=== PATIENT | male | born 1970 | race Caucasian/White ===

== ENCOUNTER 2024-06-16 01:54 | Inpatient (IN) | payer SELFPAY ==
[2024-06-16] VITALS (10 sets, daily range): BP systolic 140–157; BP diastolic 72–89; PULSE 72–102; RESP 16–20; TEMP 36.6–36.9; O2SAT 96–100; BMI 34.6
--- NOTE | 2024-06-16 | ECHO_ITS ---
Patient Info Name: Duong Tavares Age: 53 years : 1970 Gender: Male Ht: 68 in Wt: 227 lbs BSA: 2.26 m2 HR: 92 bpm BP: 151 / 76 mmHg Technical Quality: Poor Exam Date: 06/16/2024 11:34 AM Exam Location: Echo Lab Patient Status: Inpatient Admit Date: 06/16/2024 Staff Ordering Physician: Schuyler Gomez NP Attending Provider: Niranjan Ken MD Referring Physician: Jason MURRAY; Exam Type: CA echo dop color flow w con Study Info Indications - FALL EPISODES Complete two-dimensional, color flow and Doppler transthoracic echocardiogram is performed with contrast to opacify the left ventricle and to improve the deliniation of the left ventricle endocardial borders. Contrast/Agitated Saline Contrast/Ag. Saline: Definity Amount: 2.00 ml Existing IV Access: Yes Reason for Poor Study: poor echocardiographic windows Summary 1. Suboptimal image quality, echo contrast was used. Normal LV size, moderate LVH, normal LV systolic and diastolic function. No significant MR. Aortic valve not well visualized, no hemodynamically significant stenosis by Doppler. Unable to assess RVSP due to inadequate TR jet. Left Ventricle Left ventricular chamber dimension is normal. Left ventricular systolic function is normal, estimated at 65-70%. There is moderately increased left ventricular wall thickness. The left ventricular diastolic function is normal. Right Ventricle Right ventricular chamber dimension is normal. Right ventricular systolic function is normal. Left Atria Left atrial chamber dimension is normal. Right Atria Right atrial chamber dimension is normal. Aortic Valve The aortic valve is not well visualized. There is no aortic valve stenosis. Pulmonic Valve The pulmonic valve is not well visualized. Mitral Valve The mitral valve has normal leaflets. Tricuspid Valve The tricuspid valve leaflets are normal. Pericardium/Pleural The pericardium appears normal. Aorta The aortic root size at the sinus of Valsalva is normal. Left Ventricular Outflow Tract Name Value Normal LVOT 2D LVOT Diameter 2.09 cm LVOT Doppler LVOT Peak Gradient 5 mmHg LVOT Mean Gradient 3 mmHg LVOT VTI 27.00 cm LVOT VTI/AV VTI Ratio 0.81 LVOT Stroke Volume 92.89 ml LVOT CO 7.44 l/min LVOT CI 3.29 L/min/m2 Pulmonic Valve Name Value Normal RVOT Doppler RVOT Peak Gradient 3 mmHg PV Doppler PV Peak Gradient 3 mmHg Mitral Valve Name Value Normal MV Doppler MV Decel [place] 874.03 cm/s2 MV PHT 0 s MV Area (PHT) 7.55 cm2 4.00-5.00 MV Diastolic Function MV E Peak Velocity 87.83 cm/s MV A Peak Velocity 83.73 cm/s MV E/A 1.05 MV Decel Time 0 s MV Annular TDI MV E/e' (Septal) 7.56 <=8.00 MV E/e' (Lateral) 6.95 <=8.00 MV E/e' (Average) 7.26 Tricuspid Valve Name Value Normal Estimated PAP/RSVP RA Pressure 10 mmHg <=5 Aorta Name Value Normal Ascending Aorta Ao Root Diameter (MM) 3.86 cm Ao Root Diam Index (MM) 1.71 cm/m2 Aortic Valve Name Value Normal AV Doppler AV Peak Velocity 140.84 cm/s AV Peak Gradient 8 mmHg AV Mean Gradient 5 mmHg AV VTI 33.35 cm AV Area (Cont Eq VTI) 2.79 cm2 >=3.00 AV Area (Cont Eq Sunday) 2.79 cm2 AV Regurgitation 2D LVOT Area 3.44 cm2 Ventricles Name Value Normal LV Dimensions 2D/MM IVS Diastolic Thickness (2D) 1.35 cm 0.60-1.00 LVID Diastole (2D) 4.32 cm 4.20-5.80 LVIW Diastolic Thickness (2D) 1.37 cm 0.60-1.00 LVID Systole (2D) 2.73 cm 2.50-4.00 LVOT Diameter 2.09 cm LV Mass (2D Cubed) 224.34 g 88.00-224.00 LV Mass Index (2D Cubed) 0.01 g/cm2 0.00-0.01 Relative Wall Thickness (2D) 0.64 LV Fractional Shortening/Ejection Fraction 2D/MM LV Fractional Shortening (2D) 38 % 25-43 LV EF (2D Teichanishaz) 68 % 52-72 LV Diastolic Volume (4C MOD) 120.71 ml LV EF (4C MOD) 65 % LV Diastolic Volume (2C MOD) 110.49 ml LV EF (2C MOD) 70 % LV Diastolic Volume (BP MOD) 116.51 ml 62.00-150.00 LV Diastolic Volume Index (BP MOD) 0.05 l/m2 0.03-0.07 LV Systolic Volume (BP MOD) 36.93 ml 21.00-61.00 LV Systolic Volume Index (BP MOD) 0.02 l/m2 0.01-0.03 LV EF (BP MOD) 68 % 52-72 LV Diastolic Length (4C) 8.40 cm LV Systolic Length (4C) 6.88 cm LV Stroke Volume (4C MOD) 78.21 ml Atria Name Value Normal LA Dimensions LA Dimension (MM) 3.34 cm 3.00-4.10 Report Signatures
--- NOTE | ~2024-06-16 | MR_ITS ---
MR brain/brain stem wo/w con Ordering provider: Hayden Addison MD History: 53 years Male with . L arm weakness . Comparison: CT head performed 16/06/2024 Technique: MRI brain was performed with and without contrast. 20 mL of MultiHance were injected IV. FINDINGS: BONES: Normal. CRANIOCERVICAL JUNCTION: normal. PITUITARY: Normal. MAJOR INTRACRANIAL VESSELS: Normal flow void. OPTIC NERVES AND CRANIAL NERVES VII AND VIII COMPLEXES: Grossly normal. BRAIN PARENCHYMA AND CSF SPACES: Mild nonspecific T2 white matter hyperintensities are seen in a cristofer ateral periventricular and deep white matter distribution which are likely related to chronic ischemi c small vessel disease. Mild diffuse cortical atrophy. The brainstem and cerebellum are normal. No ac luisa or chronic intracranial hemorrhage. No extra axial fluid collections. Diffusion weighted and ADC mapping images reveal diffusion restriction in the posterior right frontal, right parietal area exten ding to the temporal lobe and insula suggestive of acute infarct. Small focus is also seen in the lef t parietal white matter suggestive of lacunar infarct. No midline shift or mass effect. No abnormal c ontrast enhancement. PARANASAL SINUSES: Left maxillary, right maxillary and right bilateral ethmoid sinus disease. MASTOIDS: Normal SUPERFICIAL/SURROUNDING SOFT TISSUES: Normal. IMPRESSION: 1. Acute infarct involving the right posterior frontal, parietal, superior temporal and insular area s. 2. . No abnormal enhancement. Results was notified to the physician Aparna Blanco on June 16, 2024 2 :38 PM. Reviewed, dictated and finalized at location A. FOLIO LEAD IMPRESSION: 1. Acute infarct involving the right posterior frontal, parietal, superior tem poral and insular areas. 2. . No abnormal enhancement. Results was notified to the physician Aparna Blanco on June 16, 2024 2 :38 PM.
--- NOTE | ~2024-06-16 | XR_ITS ---
Portable chest x-ray Comparison: None Clinical History: Weakness Findings: Lungs are clear, without focal consolidation or pleural effusion. Cardiomediastinal silho uette is stable. Bones and soft tissues are unremarkable. Impression: Clear lungs. Reviewed, dictated and finalized at location M. ARE DIRECTOR Impression: Clear lungs.
--- NOTE | ~2024-06-16 | CT_ITS ---
CT ANGIOGRAM NECK AND HEAD History: CVA. Technique: Axial noncontrast imaging of the brain was performed. Serial spiral axial images through t he head and neck were then obtained during arterial phase IV injection of 100 cc of Omnipaque 350. 3- D postprocessing and MIP images were then reconstructed on the remote workstation. Dose reduction mikala hnique was used on this scan by utilizing automated exposure control and iterative reconstruction mikala hnique. The dose-length product (DLP) was 2018.03 mGy-cm. CTA neck findings: Bilateral vertebral arteries are patent. Bilateral common carotid, internal carot id, and external carotid arteries are patent. There are calcified plaques the bilateral internal morgan tid artery origins, but no significant stenosis is evident. No large vessel occlusion or stenosis. Th e proximal right internal carotid artery demonstrates 0% stenosis relative to the normal distal arter y lumen diameter. The proximal left internal carotid artery demonstrates 0% stenosis relative to the normal distal artery lumen diameter. CTA head findings: Distal vertebral arteries, basilar artery, and posterior cerebral arteries are pat ent. Distal internal carotid arteries, middle cerebral arteries, and anterior cerebral arteries are p atent. No large vessel occlusion or stenosis seen. No aneurysm. Axial noncontrast imaging of the brain is unremarkable. No acute infarct, intracranial hemorrhage or mass lesion seen. [place]-white differentiation preserved. No mass effect or midline shift. Ventricles a nd subarachnoid spaces are unremarkable. Paranasal sinuses are clear, aside from retention cyst or po lyp in the left maxillary sinus. Calvarium intact. Impression: No acute findings. Reviewed, dictated and finalized at location . GY AUDITOR Impression: No acute findings.
--- NOTE | 2024-06-16 02:00 | ECG_ITS ---
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
[2024-06-16 02:07] LABS: Glucose Point of Care 430 mg/dl (65-105)
[2024-06-16 02:16] LABS: Basophils Absolute Auto 0.1 K/mm3 (0.0-0.1); Basophils Percent Auto 0.6 % (0.2-1.2); Eosinophils Absolute Auto 0.3 K/mm3 (0-0.3); Eosinophils Percent Auto 3.4 % (0-4.4); Hematocrit 29.1 % (42.0-52.0); Hemoglobin 9.5 g/dL (14.0-18.0); Immature Granulocyte Absolute 0.05 K/mm3 (0.00-0.031); Immature Granulocyte Percent A 0.6 % (0-0.5); Lymphocytes Percent Auto 23.5 % (18.3-44.2); Mean Corpuscular HGB Conc 32.6 g/dl (32-36); Mean Corpuscular Hemoglobin 26.4 pg (26-34); Mean Corpuscular Volume 80.8 fl (80-100); Mean Platelet Volume 9.3 fl (7.4-10.4); Monocytes Absolute Auto 0.7 K/mm3 (0.1-0.6); Monocytes Percent Auto 8.7 % (2.6-8.5); Neutrophils Absolute Auto 5.4 K/mm3 (1.3-6.7); Neutrophils Percent Auto 63.2 % (45.5-73.1); Platelet Count Result 250 k/mm3 (150-375); White Blood Count 8.5 K/mm3 (4.5-10.0)
[2024-06-16 02:27] LABS: Alanine Aminotransferase 10 U/L (6-50); Albumin Level 3.7 g/dL (3.5-5.1); Alkaline Phosphatase 79 U/L (38-126); Anion Gap 4 mmol/L (4-12); Aspartate Amino Transferase 17 U/L (17-59); Bilirubin,Total 0.3 mg/dL (0.2-1.3); Blood Urea Nitrogen 42 mg/dL (9-20); Calcium 8.8 mg/dL (8.4-10.2); Carbon Dioxide 30 mmol/L (22-30); Chloride 99 mmol/L (98-107); Estimated CRCL calculation 50 ml/min; Estimated Glomerular Filt Rate 39; Glucose 432 mg/dL (65-110); Prothrombin Time 13.7 Seconds (11.1-14.7); Sodium 133 mmol/L (137-145)
[2024-06-16 02:28] LABS: Partial Thromboplastin Time 33.3 Seconds (22.3-36.8)
[2024-06-16 02:29] LABS: Ethanol < 10 mg/dL (<10)
[2024-06-16 02:31] LABS: Magnesium 1.6 mg/dL (1.6-2.3)
--- NOTE | 2024-06-16 02:49 | ED.NEUROSD ---
HPI - Neuro Symptoms/Deficit General Chief Complaint: Suspected CVA Stated Complaint: Left sided weakness Time Seen by Provider: 06/16/24 02:00 History of Present Illness HPI Narrative: Patient is a 53-year-old male who presents to the emergency department this morning post a ground level fall occurred at home. Patient admits that he lives at home alone and called 911 he fall around 12:30 a.m. patient states that he feels generally weak but felt as though he was more weak on the left side which believes that this precipitated his fall. When asked regarding when the left arm weakness started, patient is unable to give me a clear time, stating sometime last night before he was getting ready to go to sleep. Patient is able to move all 4 extremities and is following all of my commands, is alert and oriented to person, place, time and situation and is able to list all of his home medications by memory. Patient states that he felt as though he could not coordinate his left arm and get it to do what he wants it to do. 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 Patient denies any additional symptoms including any chest pain, shortness of breath, nausea, vomiting, abdominal pain, headaches, dizziness, blurry vision, numbness and/or tingling. Denies any blood thinner use. Denies any history of cardiovascular disease or stroke. Patient was recently treated for osteomyelitis of his left foot as he has an on going diabetic ulcer status post multiple toe amputations this past December. Patient has a wound care nurse come to his home twice a week every Friday and Friday to help with his wounds. Patient states that he has been getting around at home but a walker or a cane as best as he can with his toe amputations. Related Data Allergies Allergy/AdvReac Type Severity Reaction Status Date / Time No Known Allergies Allergy Verified 06/16/24 02:03 Review of Systems Review of Systems: All systems are reviewed and are negative unless stated otherwise in the HPI. Exam Narrative: General: Alert, awake, afebrile, in no acute distress, poor hygiene. HEENT: PERRL, no rhinorrhea, no post nasal drip, oropharynx clear. Neck: Trachea midline, no JVD, no lymphadenopathy. Cardiovascular: Regular rate and rhythm, no murmurs, rubs or gallops, no peripheral edema. Respiratory: Clear to auscultation bilaterally, no tachypnea, no wheezing, no rhonchi, no rubs, no respiratory distress. Abdomen: Soft, nontender, nondistended, no rebound, no guarding, no peritoneal signs. Musculoskeletal: Left lower extremity diabetic foot ulcer appears to be healing, multiple bilateral lower extremity toe amputation. Skin: No rashes or petechia, no signs of infection. Psychiatric: Alert and oriented, normal behavior and judgment for situation. Neurological: Alert and oriented to person, place, and time and situation. Follows all commands. Cranial nerves 2-12 grossly intact. Intact and equal strength in the bilateral lower extremity, 5/5 motor strength in the right upper extremity, 4/5 motor strength in the left upper extremity, left arm drift, speech is clear and fluent, patient was able to stand up on his own but was unstable on his feet limiting gait assessment. NIH score 2 for left upper extremity drift. Course Vital Signs Vital signs: Vital Signs Temperature 98.5 F 06/16/24 01:55 Pulse Rate 102 H 06/16/24 01:55 Respiratory Rate 16 06/16/24 01:55 Blood Pressure 148/80 H 06/16/24 01:55 Pulse Oximetry 97 06/16/24 01:55 Oxygen Delivery Room Air 06/16/24 01:55 Temperature 97.9 F 06/16/24 06:00 Pulse Rate 92 06/16/24 06:00 Respiratory Rate 18 06/16/24 06:00 Blood Pressure 151/76 H 06/16/24 06:00 Pulse Oximetry 100 06/16/24 06:00 Oxygen Delivery Room Air 06/16/24 06:24 MDM - Neuro Symptoms/Deficit MDM Narrative Medical decision making narrative: The patient was evaluated by myself in the emergency department. History is obtained from patient who is an independent historian and physical exam was performed. External medical records were reviewed at this time. IV was established and pertinent tests were ordered. EKG was obtained which revealed sinus rhythm rate of 98 beats per minute. No ST changes, T wave inversions or evidence of acute ischemia. EKG was independently interpreted by me and is currently pending official cardiology read. Laboratory results obtained revealing hemoglobin of 9.5, creatinine 1.8, BUN 42, glucose 432, otherwise unremarkable. Urinalysis revealed 3+ glucose otherwise unremarkable. No previous blood work available for comparison. Patient was administered 1 L IV fluid bolus with normal saline. Patient was administered 10 units of IV insulin for hyperglycemia. Repeat point of care glucose noted to be 293. Imaging studies obtained included CT brain without IV contrast and CT angiogram head and neck with contrast which was independently interpreted by me revealing no acute process, which is pending final radiology interpretation. CXR was also obtained and independently interpreted by me revealing no acute process. X-ray currently pending official radiology read. Differential diagnosis considerations include ischemic stroke, hemorrhagic stroke, dehydration, acute kidney injury, infectious process such as UTI/pneumonia, electrolyte derangements. Comorbidities impacting this visit include history of hypertension and diabetes. I have evaluated and discussed social determinants of health with the patient that could potentially impact subsequent diagnosis and treatment plans. At this time, case was discussed with the on-call neurologist Dr. Thapa at 0411 and he agreed to evaluate the patient. MRI brain was ordered at this time. Case was discussed with the on-call hospitalist Dr. Ken at 0430 and she accepted admission. On repeat assessment of the patient, reevaluation revealed that the patient is doing well and is in no acute distress. Patient symptoms have remained stable since he arrived to our emergency department. Repeat vital signs were all reviewed and noted to be stable. Differential diagnosis and treatment plan were discussed with the patient at bedside. Patient agrees with discussion and after shared medical decision making agrees with admission. All questions were answered to the patient's satisfaction. Patient was admitted hand stable ballesteros. Lab Data 06/16/24 02:10 06/16/24 02:10 Labs: Lab Results 06/16/24 06/16/24 06/16/24 Range/Units 02:04 02:10 02:41 WBC 8.5 (4.5-10.0) K/mm3 RBC 3.60 L (4.6-6.20) M/mm3 Hgb 9.5 L (14.0-18.0) g/dL Hct 29.1 L (42.0-52.0) % MCV 80.8 (80-100) fl MCH 26.4 (26-34) pg MCHC 32.6 (32-36) g/dl RDW 14.0 (11.5-14.5) % Plt Count 250 (150-375) k/mm3 MPV 9.3 (7.4-10.4) fl Immature Gran % (Auto) 0.6 H (0-0.5) % Neut % (Auto) 63.2 (45.5-73.1) % Lymph % (Auto) 23.5 (18.3-44.2) % [place] % (Auto) 8.7 H (2.6-8.5) % Eos % (Auto) 3.4 (0-4.4) % Baso % (Auto) 0.6 (0.2-1.2) % Lymph # (Auto) 2.00 (0.9-3.2) K/mm3 [place] # (Auto) 0.7 H (0.1-0.6) K/mm3 Eos # (Auto) 0.3 (0-0.3) K/mm3 Baso # (Auto) 0.1 (0.0-0.1) K/mm3 Abs Immat Gran (auto) 0.05 H (0.00-0.031) K/mm3 Absolute Neuts (auto) 5.4 (1.3-6.7) K/mm3 Absolute Nucleated RBC 0.000 (0.0-0.012) K/mm3 Nucleated RBC % 0.0 (0.0-0.2) % PT 13.7 (11.1-14.7) Seconds INR 1.0 APTT 33.3 (22.3-36.8) Seconds Sodium 133 L (137-145) mmol/L Potassium 5.0 (3.4-5.0) mmol/L Chloride 99 (98-107) mmol/L Carbon Dioxide 30 (22-30) mmol/L Anion Gap 4 (4-12) mmol/L BUN 42 H (9-20) mg/dL Creatinine 1.80 H (0.7-1.3) mg/dL Estim Creat Clear Calc 50 ml/min Estimated GFR 39 L (59 - ) Glucose 432 H (65-110) mg/dL POC Capillary Glucose 430 H (65-105) mg/dl Calcium 8.8 (8.4-10.2) mg/dL Magnesium 1.6 (1.6-2.3) mg/dL Total Bilirubin 0.3 (0.2-1.3) mg/dL AST 17 (17-59) U/L ALT 10 (6-50) U/L Alkaline Phosphatase 79 (38-126) U/L Total Protein 8.0 (6.3-8.2) g/dL Albumin 3.7 (3.5-5.1) g/dL Urine Color Yellow (Yellow) Urine Appearance Clear (Clear) Urine pH 5.5 (5.0-9.0) Ur Specific Adger 1.020 (1.001-1.035) Urine Protein 1+ H (Negative) mg/dL Urine Glucose (UA) 3+ H (Negative) mg/dL Urine Ketones Negative (Negative) mg/dL Ur Blood (Man) Negative (Negative) Urine Nitrate Negative (Negative) Urine Bilirubin Negative (Negative) Urine Urobilinogen 0.2 (<2.0) mg/dL Leukocyte Esterase Rfl Negative (Negative) HARRISON/UL Urine RBC 0-2 (0-2) /hpf Urine WBC 0-5 (0-3) /hpf Ur Squamous Epith Cells None seen (Few) /hpf Urine Bacteria None seen /hpf Urine Casts 0-2 Urine Opiates Screen Negative (Negative) Urine Methadone Screen Negative (Negative) Ur Barbiturates Screen Negative (Negative) Ur Phencyclidine Scrn Negative (Negative) Ur Amphetamine Screen Negative (Negative) U Benzodiazepines Scrn Negative (Negative) Urine Cocaine Screen Negative (Negative) U Cannabinoids Screen Negative (Negative) Ethyl Alcohol < 10 (<10) mg/dL Discharge Plan Discharge Clinical Impression: Left arm weakness, Acute kidney injury, Hyperglycemia, Diabetic foot ulcer Patient Disposition: Still a Patient Condition: Stable Time of Disposition: 04:38
[2024-06-16 02:53] LABS: Add Urine Microscopic? YES; Appearance Urine Clear (Clear); Bacteria Urine None Seen /hpf; Bilirubin Urine Negative (Negative); Blood Urine Negative (Negative); Color Urine Yellow (Yellow); Glucose Urine UA 3+ mg/dL (Negative); Ketones Urine Negative (Negative); Leukocyte Esterase Ur Negative LEU/UL (Negative); Nitrate Urine Negative (Negative); Non Pathogenic Casts 0-2; Protein Urine 1+ mg/dL (Negative); RBC Urine 0-2 /hpf (0-2); Squamous Epithelial Cell Urine None Seen /hpf (Few); Urobilinogen Urine 0.2 mg/dL (<2.0); WBC Urine 0-5 /hpf (0-3); pH Urine 5.5 (5.0-9.0)
[2024-06-16] MEDS: SODIUM CHLORIDE 0.9% IV 1,000 ML 999 ML IV CONT (03:01)
[2024-06-16 03:06] LABS: Amphetamine Screen Urine Negative (Negative); Barbiturate Screen Urine Negative (Negative); Benzodiazepines Screen Urine Negative (Negative); Cannabinoid Screen Urine Negative (Negative); Cocaine Screen Urine Negative (Negative); Methadone Screen Urine Negative (Negative); Opiate Screen Urine Negative (Negative); Phencyclidine Screen Urine Negative (Negative)
--- NOTE | 2024-06-16 03:09 | PC.NURSE ---
Pt denies pain, pt only c/o feeling weak. He states he fell at home because my body just gave out I was weak . Pt is A&O x 4
--- NOTE | 2024-06-16 03:47 | PC.NURSE ---
Pt asked multiple times to keep his arm out from under himself while sleeping so NS bolus can be administered, Pt repeatedly moving around in bed resulting in tele monitors, BP cuff and pulse ox to come off.
--- NOTE | 2024-06-16 04:03 | PC.NURSE ---
New dressing applied to pts left foot by Dr. Addison. No drainage or redness noted on wound. Dr. Addison asked pt to stand up and take a few steps. Pt sat up on edge of bed with assistance. Pt able to stand up on his own but pt was not able to take any steps and immediately sat back down. Pt was able to scoot himself up in bed.
--- NOTE | 2024-06-16 04:50 | PC.NURSE ---
Report given to Bienvenido, he asked if anything could be done for pts BG of 432. Dr. Addison notifed and she states she will put in a medication order
--- NOTE | 2024-06-16 04:50 | PC.NURSE ---
Patient unable to provide a list of medications; Patient states he takes insulins, something for blood pressure and cholesterol, zoloft, and a multivitamin , but was unable to provide names and/or dosage. RN was unable to recall an external medication list. Dr. Ken was notified.
[2024-06-16] MEDS: INSULIN HUMAN REGULAR (*BKC) 100 UNITS/ML 10 UNITS IV PUSH (05:05)
[2024-06-16 05:22] LABS: Glucose Point of Care 293 mg/dl (65-105)
[2024-06-16 06:34] LABS: Glucose Point of Care 233 mg/dl (65-105)
[2024-06-16 08:38] LABS: Glucose Point of Care 231 mg/dl (65-105)
--- NOTE | 2024-06-16 09:41 | PM.IMHP ---
H&P: HPI History of Present Illness Date/Time: 06/16/24 09:41 Chief Complaint: Left Arm Weakness Narrative: Patient was brought in to the ER with an acute onset of Left arm weakness. Patient reports that he was trying to sleep on his recliner but suddenly he felt like he couldn't feel his left arm or move it. He tried moving it with his right arm but he was having difficulty. Pt then tried walking to the bathroom and fell, and had difficulties getting himself up due to left arm and left leg weakness. He then attempted to ambulate to his bedroom but he fell again and had difficulties getting up again, so he called EMS. He denied hitting his head or LOC, states might have had some slight dizziness but unsure. Denies previous Hx of stroke, and denies blood thinners use. Patient has a walker but admits to not using it for the most part. He was treated for osteomyelitis of his left foot and has an ongoing diabetic ulcer status post left small toe amputation this past January. Patient has a wound care nurse come to his home twice a week every Friday and Friday to help with his wounds. Review of Systems Review of Systems: All systems reviewed & are unremarkable except as noted in HPI and below PMFSH Social History Social History Smoking packs per day: 0.5 Smoking cigarettes per day: 10.0 Smoking status: Current every day smoker Do You Feel Safe in your Home?: Yes Lack of Transportation: No Lack of Food: Never True Current Housing: I Have Housing Concerned About Future Housing: No Difficulty Paying Gas/Electric Bills: No Difficulty Paying for Meds: No Currently Unemployed: No Education: High School Diploma/GED Difficulty w/ Childcare or Family Care: No Spiritual care concerns: No Meds Home Medications and Allergies Allergies Allergy/AdvReac Type Severity Reaction Status Date / Time No Known Allergies Allergy Verified 06/16/24 02:03 Vital Signs Vital Signs - 24 hr 06/16/24 01:55 06/16/24 02:06 06/16/24 03:42 Temperature 98.5 F Pulse Rate 102 H 98 94 Respiratory Rate 16 16 18 Blood Pressure 148/80 H 148/80 H 143/84 H Pulse Oximetry 97 96 Oxygen Delivery Room Air 06/16/24 05:22 06/16/24 06:24 06/16/24 06:00 Temperature 97.9 F Pulse Rate 87 92 Respiratory Rate 20 18 Blood Pressure 140/89 151/76 H Pulse Oximetry 98 100 Oxygen Delivery Room Air Exam Narrative: General: Fair appearing, slight generalized muscle weakness. HEENT: Atraumatic, PERRL, EOM, anicteric, moist mucosa. Neck: Supple. Lungs: Clear bilaterally. Heart: RRR, no murmurs. Abdomen: Soft, non-tender, obese, +ve bowel sounds X4 quadrants. Musculoskeletal: Left arm with some mild weakness, left leg mod weakness. Extremities: Acyanotic, no edema, +ve pedal pulses. Skin: Warm and dry. Left lateral distal foot with diabetic ulcer, pink and moist with some slough and slight yellowish drainage. Neuro: Well oriented, slight left-arm weakness, left arm drift on arm raise test, good cristofer. 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 Psych: Calm and co-operative. H&P: Results Labs Labs: Short CBC 06/16/24 Range/Units 02:10 WBC 8.5 (4.5-10.0) K/mm3 Hgb 9.5 L (14.0-18.0) g/dL Hct 29.1 L (42.0-52.0) % Plt Count 250 (150-375) k/mm3 BMP 06/16/24 02:10 Sodium 133 L Potassium 5.0 Chloride 99 Carbon Dioxide 30 BUN 42 H Creatinine 1.80 H Glucose 432 H Calcium 8.8 Liver Function 06/16/24 Range/Units 02:10 Total Bilirubin 0.3 (0.2-1.3) mg/dL AST 17 (17-59) U/L ALT 10 (6-50) U/L Alkaline Phosphatase 79 (38-126) U/L Albumin 3.7 (3.5-5.1) g/dL Urine 06/16/24 Range/Units 02:41 Urine Color Yellow (Yellow) Urine Appearance Clear (Clear) Urine pH 5.5 (5.0-9.0) Ur Specific [place] 1.020 (1.001-1.035) Urine Protein 1+ H (Negative) mg/dL Urine Glucose (UA) 3+ H (Negative) mg/dL Assessment and Plan Assessment and plan (1) Left arm weakness: Code(s): R29.898 - Other symptoms and signs involving the musculoskeletal system Status: Acute Assessment and Plan: - Unclear etiology. - Possibly acute CVA vs TIA vs musculoskeletal vs other. - Labs fairly unremarkable. - CXR negative. - UA negative. - CTA head/Neck negative for acute. - SR on EKG. - Telemetry ordered. - MRI Brain pending. - Neurologist consulted. - Currently on acute CVA protocol. - TTE, A1C, Lipid Panel pending. - PT/OT eval and treatment. - Fall precautions. (2) Recurrent falls: Code(s): R29.6 - Repeated falls Status: Acute Assessment and Plan: - Unclear etiology. - Possibly acute CVA vs TIA vs musculoskeletal vs other. - CTA head/neck negative. - UA negative. - CXR negative. - MRI brain pending. - Neurologist consulted. - PT/OT eval and treatment. - Fall precautions. - Other mgt per # 1. (3) Acute kidney injury: Code(s): N17.9 - Acute kidney failure, unspecified Status: Acute Assessment and Plan: - Unclear etiology and unsure pt's baseline kidney function with no previous labs. - Reports good oral food and fluids intake at home. - Possibly dehydration vs/+ diabetic + hypertensive nephropathy. - Given fluid bolus in ER. - 1L IVF ordered. - Monitor renal panel closely. - Avoid nephrotoxins. - Meds dosing per renal function. (4) Hyperglycemia: Code(s): R73.9 - Hyperglycemia, unspecified Status: Acute Assessment and Plan: - Blood glucose monitoring AC & HS. - Started on Lantus and SSI. - A1C pending. - Diabetic diet. - Adjust insulin as needed. - Hypoglycemic protocol. (5) Diabetic foot ulcer: Code(s): E11.621 - Type 2 diabetes mellitus with foot ulcer; L97.509 - Non-pressure chronic ulcer of other part of unspecified foot with unspecified severity Status: Acute Assessment and Plan: - Chronic. - Appears clean and non-infected. - Wound nurse consult. - Wound mgt per nursing staff. (6) HTN (hypertension): Code(s): I10 - Essential (primary) hypertension Status: Acute Assessment and Plan: - Fairly well controlled. - Hold lisinopril for now with BECCA. - Adjust meds as needed. Plan Neurologist consulted for Left-arm weakness, MRI brain pending, adjust insulin for better blood-glucose control. Quality VTE Prophylaxis VTE prophylaxis: mechanical ordered Stroke Date of last known normal: 06/15/24 Time of last known normal: 17:00 Hospitalist [facility] Advance Care Plan I have confirmed that the patient's Advanced Care Plan is present, code status is documented, or surrogate decision maker is listed in patient medical record.: Yes Medication Reconciliation I have utilized all available resources to obtain, update and review the patients current medications (includes all prescriptions, OTC, herbals, cannabis, and nutritional supplements).: Yes
[2024-06-16 10:29] LABS: Cholesterol 128 mg/dL (0-200); HDL Direct 26 mg/dL; Triglycerides 273 mg/dL (<150)
[2024-06-16] MEDS: SODIUM CHLORIDE 0.9% IV 1,000 ML 75 ML IV CONT (10:33)
[2024-06-16 10:40] LABS: LDL Cholesterol Direct 46 mg/dL
[2024-06-16 10:42] LABS: Hemoglobin A1C 10.4 % (<5.7)
[2024-06-16 11:56] LABS: Glucose Point of Care 228 mg/dl (65-105)
[2024-06-16] MEDS: INSULIN ASPART (*BKC) 100 UNITS/ML SUB-Q ×3 (12:33→20:58)
--- NOTE | 2024-06-16 12:40 | P.CONNEU_ITS ---
Assessment and Plan Assessment and plan (1) Recurrent falls: Code(s): R29.6 - Repeated falls Status: Acute (2) Left arm weakness: Code(s): R29.898 - Other symptoms and signs involving the musculoskeletal system Status: Acute (3) Diabetic foot ulcer: Code(s): E11.621 - Type 2 diabetes mellitus with foot ulcer; L97.509 - Non-pressure chr onic ulcer of other part of unspecified foot with unspecified severity Status: Acute (4) TIA (transient ischemic attack): Code(s): G45.9 - Transient cerebral ischemic attack, unspecified Status: Acute Plan 1. Diabetes mellitus 2. Complaints of left upper extremity weakness raising the possibility of TIA versus compressive neuropathy versus brachial plexopathy because of the positional compression. As the initial CT scan is negative MRI will be obtained for further delineation in the meantime MRI an echocardiogram will be obtained head and neck CT has already been done which is normal. He will also benefit from the EMG and nerve conduction study as an outpatient. At present he can be continued on aspirin and Plavix for the next 6 week will require the follow-up with the physician. He definitely need ongoing counseling for his ongoing diabetic treatment, Which could be contributing to diabetic neuropathy and autonomic neuropathy. Consult date: 06/16/24 Reason for consult: Fall raising the possibility of stroke. HPI: Duong Tavares is a 53 year old male admitted to the hospital through the emergency room where he presented subsequent to our ground level fall at home patient lives at home alone and he call 911 around 12:30 a.m. and reported that he generally feels weak but thought he was more weak than usual on the left side which resulted in the fall. He was unable to describe to the physician in the ER with a he had the left upper extremity weakness or not at the time of initial evaluation in the emergency room he was able to move all 4 extremities and was able to follow all the verbal commands appropriately and also he was awake alert oriented x3 with ability to list all his medications as well. But he did mention that he was having difficulties in coordinating his left arm patient was eventually able to varying exceptionalities teacher fingers of the examination in the ER and squeeze the hands as well he gave no history of any other changes associated symptomatology such as headache blurred vision weakness or numbness of 1 side or other side patient had recently been treated for osteomyelitis of left foot and also he has ongoing diagnosis of diabetic ulcer and has undergone multiple toe amputation in the month of December. He does have a wound care nurse comes to his house twice a week and he has been getting around in the house using a walker. He is not allergic to any medications his initial examination revealed him to have normal vital signs with pulse of 102 the pressure 148/80 and 4/5 strength in the left upper extremity with left upper extremity drift but no involvement of the speech or vision. evaluation in the ER revealed him to have no leukocytosis with hemoglobin of 9.5, normal chest x-ray and normal CTA with no involvement of the large vessels, patient has not been able to provide his list of medications. Review of Systems Review of Systems: All systems reviewed & are unremarkable except as noted in HPI and below PMFSH Social History Social History Smoking packs per day: 0.5 Smoking cigarettes per day: 10.0 Smoking status: Current every day smoker Do You Feel Safe in your Home?: Yes Lack of Transportation: No Lack of Food: Never True Current Housing: I Have Housing Concerned About Future Housing: No Difficulty Paying Gas/Electric Bills: No Difficulty Paying for Meds: No Currently Unemployed: No Education: High School Diploma/GED Difficulty w/ Childcare or Family Care: No Spiritual care concerns: No Meds Home Medications and Allergies Home Medications Medication Instructions Recorded Confirmed Type Unable to Obtain Home Medications 06/16/24 06/16/24 History Allergies Allergy/AdvReac Type Severity Reaction Status Date / Time No Known Allergies Allergy Verified 06/16/24 02:03 Vital Signs Vital Signs - 24 hr 06/16/24 01:55 06/16/24 02:06 06/16/24 03:42 Temperature 36.9 C Pulse Rate 102 H 98 94 Respiratory Rate 16 16 18 Blood Pressure 148/80 H 148/80 H 143/84 H Pulse Oximetry 97 96 Oxygen Delivery Room Air 06/16/24 05:22 06/16/24 06:24 06/16/24 06:00 Temperature 36.6 C Pulse Rate 87 92 Respiratory Rate 20 18 Blood Pressure 140/89 151/76 H Pulse Oximetry 98 100 Oxygen Delivery Room Air 06/16/24 08:15 06/16/24 12:00 Temperature Pulse Rate 84 Respiratory Rate Blood Pressure Pulse Oximetry Oxygen Delivery Room Air Exam Narrative: Revealed him to be awake alert cooperative in no obvious acute distress, his speech not dysphasic not dysarthric not dysphonic, head normocephalic with no cranial bruits, ear nose throat examination normal, neck supple with no meningeal signs no thyromegaly no lymphadenopathy, heart regular with no murmur, lungs clear with no evidence of rhonchi or crepitations, abdomen is soft nontender but protuberant with normal bowel sounds, upper extremities without any 0 ulcers lower extremities with no edema neurologically he was awake alert cooperative in no obvious acute distress, his speech was not dysphasic not dysa rthric not dysphonic, pupils are round regular feels the vision were full to threat stimuli, extraocular movements are full with no spontaneous nystagmus, facial sensation was intact face was symmetrical, tongue was midline uvula was midline, motor examination revealed him to be generally with decreased strength with no focal motor deficit, reflexes were extremely sluggish, plantar responses were downgoing, he had decreased sensation in both lower extremities, There was no evidence of gross cerebellar deficit on [id number]-finger though he had difficulties in performing so. Results Labs 06/16/24 02:10 06/16/24 02:10 Labs: Short CBC 06/16/24 Range/Units 02:10 WBC 8.5 (4.5-10.0) K/mm3 Hgb 9.5 L (14.0-18.0) g/dL Hct 29.1 L (42.0-52.0) % Plt Count 250 (150-375) k/mm3 BMP 06/16/24 02:10 Sodium 133 L Potassium 5.0 Chloride 99 Carbon Dioxide 30 BUN 42 H Creatinine 1.80 H Glucose 432 H Calcium 8.8 Liver Function 06/16/24 Range/Units 02:10 Total Bilirubin 0.3 (0.2-1.3) mg/dL AST 17 (17-59) U/L ALT 10 (6-50) U/L Alkaline Phosphatase 79 (38-126) U/L Albumin 3.7 (3.5-5.1) g/dL Urine 06/16/24 Range/Units 02:41 Urine Color Yellow (Yellow) Urine Appearance Clear (Clear) Urine pH 5.5 (5.0-9.0) Ur Specific [place] 1.020 (1.001-1.035) Urine Protein 1+ H (Negative) mg/dL Urine Glucose (UA) 3+ H (Negative) mg/dL
[2024-06-16] MEDS: PERFLUTREN LIPID MICROSPHERES 1.5 ML VIAL DILUTED TO 10 ML TOTAL VOLUME IV PUSH (13:00)
--- NOTE | 2024-06-16 13:26 | IVDEFINITY ---
Prior to administration of IV Definity the patient was educated on the risks and benefits of the imaging enhancing agent including potential adverse side effects. The patient verbalized understanding. Allergies were verified. No exclusion criteria were identified and at least one of the following inclusion criteria were met: 1) physician request, 2) patient technically difficult to image (per the [place] [employer]ch[employer] guidelines of two or more segments not discernable within the apical view), or 3) questionable left ventricular function. ?
[2024-06-16 16:52] LABS: Glucose Point of Care 278 mg/dl (65-105)
[2024-06-16 20:49] LABS: Glucose Point of Care 256 mg/dl (65-105)
[2024-06-16] MEDS: INSULIN GLARGINE (*BKC) 100 UNITS/ML 20 UNITS SUB-Q (20:59)
[2024-06-17] VITALS (10 sets, daily range): BP systolic 144–169; BP diastolic 76–84; PULSE 73–89; RESP 16–20; TEMP 36.6–36.7; O2SAT 96–100
[2024-06-17 08:30] LABS: Glucose Point of Care 154 mg/dl (65-105)
[2024-06-17] MEDS: SODIUM CHLORIDE 0.9% IV 1,000 ML 75 ML IV CONT (08:50)
--- NOTE | 2024-06-17 10:53 | PM.IMPN ---
Progress Note: A&P Assessment and Plan (1) Acute CVA (cerebrovascular accident): Code(s): I63.9 - Cerebral infarction, unspecified Status: Acute Assessment and Plan: - Brain MRI 06/16/24 14:17 IMPRESSION: 1. Acute infarct involving the right posterior frontal, parietal, superior temporal and insular areas. 2. No abnormal enhancement. - Neurologist aware of acute CVA. - Outside window for IV thrombolysis on his presentation and treatment not administered. - Patient on acute CVA protocol. - ST/PT/OT eval and treatment. - TTE ordered. - A1C, Lipid panel ordered. - Maintains SR on telemetry and we'll continue monitoring. (2) Left arm weakness: Code(s): R29.898 - Other symptoms and signs involving the musculoskeletal system Status: Acute Assessment and Plan: - Likely related to above vs less likely musculoskeletal, compressive neuropathy versus brachial plexopathy due to positional compression. - MRI +ve for acute infarct as noted above. - Labs fairly unremarkable. - CXR negative. - UA negative. - CTA head/Neck negative for acute. - SR on EKG. - Neurologist following. - Continue to implement acute CVA protocol. - TTE, A1C, pending. - Lipid Panel reviewed and LDL noted, 46. - PT/OT eval and treatment. - Fall precautions. (3) Recurrent falls: Code(s): R29.6 - Repeated falls Status: Acute Assessment and Plan: - Unclear etiology. - Possibly related to patient's acute CVA vs musculoskeletal vs other. - CTA head/neck negative. - UA negative. - CXR negative. - MRI brain showing acute CVA. - Neurologist following. - Continue PT/OT eval and treatment. - Fall precautions. - Other mgt per # 1. (4) Acute kidney injury: Code(s): N17.9 - Acute kidney failure, unspecified Status: Acute Assessment and Plan: - Unclear etiology and unsure pt's baseline kidney function with no previous labs. - Reports good oral food and fluids intake at home. - Possibly dehydration vs/+ diabetic + hypertensive nephropathy. - Given fluid bolus in ER. - 1L IVF given overnight. - Monitor renal panel closely. - Avoid nephrotoxins. - Meds dosing per renal function. (5) Hyperglycemia: Code(s): R73.9 - Hyperglycemia, unspecified Status: Acute Assessment and Plan: - Hx of DM 2. - Blood glucose monitoring AC & HS. - Started on Lantus and SSI. - A1C pending. - Diabetic diet. - Adjust insulin as needed. - Hypoglycemic protocol with insulin use. (6) Diabetic foot ulcer: Code(s): E11.621 - Type 2 diabetes mellitus with foot ulcer; L97.509 - Non-pressure chronic ulcer of other part of unspecified foot with unspecified severity Status: Acute Assessment and Plan: - Chronic. - Appears clean and non-infected. - Wound nurse consult. - Wound mgt per nursing staff. (7) HTN (hypertension): Code(s): I10 - Essential (primary) hypertension Status: Acute Assessment and Plan: - Fairly well controlled. - Hold lisinopril for now with BECCA and permissive hypertension post acute CVA. - Adjust meds as needed when stable. Plan Neurologist consulted for Left-arm weakness, MRI brain pending, adjust insulin for better blood-glucose control. Time Spent With Patient Time with patient: 25 - 35 minutes Subjective Date/time seen: 06/17/24 08:53 Patient states he feels alright but still has weakness to his left arm and can barely lift his left arm. Also has slight left leg weakness. Denies headache, dizziness or other acute distress and states enjoyed his breakfast. Interval history: Patient calm on bedrest and looks to be in no acute distress. Review of Systems Review of Systems: All systems reviewed & are unremarkable except as noted in HPI and below Exam Narrative: General: Fair appearing, no acute distress on recliner. Left arm rested on arm-rest. HEENT: Atraumatic, PERRL, EOM, anicteric, moist mucosa. Neck: Supple. Lungs: Clear bilaterally. Heart: RRR, no murmurs. Abdomen: Soft, non-tender, obese, +ve bowel sounds X4 quadrants. Musculoskeletal: Left arm with mild-mod weakness, left leg mild weakness. Extremities: Acyanotic, no edema, +2 pedal and radial pulses. Skin: Warm and dry. Left lateral distal foot with diabetic ulcer, pink and moist with some slough and slight yellowish drainage. Neuro: Well oriented, slight left-arm weakness, left arm drift on arm raise test, good cristofer. 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 no other focal neuro deficits noted. Psych: Calm and co-operative. Objective Data Vital Signs Vital Signs: Vital Signs - 24 hr 06/16/24 12:00 06/16/24 14:00 06/16/24 16:00 Temperature 98.1 F Pulse Rate 84 78 72 Respiratory Rate 16 Blood Pressure 149/74 H Pulse Oximetry 99 Oxygen Delivery 06/16/24 20:00 06/16/24 20:00 06/16/24 22:00 Temperature 98.1 F Pulse Rate 77 74 Respiratory Rate 18 Blood Pressure 157/72 H Pulse Oximetry 99 Oxygen Delivery Room Air 06/17/24 00:00 06/17/24 04:00 06/17/24 06:00 Temperature 97.8 F Pulse Rate 76 73 78 Respiratory Rate 18 Blood Pressure 144/76 H Pulse Oximetry 96 Oxygen Delivery 06/17/24 09:09 06/17/24 08:50 06/17/24 08:50 Temperature Pulse Rate 89 Respiratory Rate Blood Pressure Pulse Oximetry 98 Oxygen Delivery Room Air Room Air Intake/Output Intake/Output: Intake & Output 06/14/24 06/15/24 06/16/24 06/17/24 23:59 23:59 23:59 23:59 Intake Total 2874 236 Output Total 1825 1277 Balance 1049 -1041 Meds/Results Medications: Active Medications Generic Name Dose Route Start Last Admin Trade Name Freq PRN Reason Stop Dose Admin Dextrose 12.5 gm 06/16/24 10:06 Dextrose 50% 25 Gm/50 Ml Syringe IV PUSH PRN PRN Hypoglycemia Protocol Glucagon 1 mg 06/16/24 10:06 Glucagon For Inj 1 Mg Vial IM PRN PRN Hypoglycemia Protocol Glucose 15 gm 06/16/24 10:06 Glucose Oral Gel 15 Gm Of Glucse In 37.5 Gm Tube PO PRN PRN Hypoglycemia Protocol Dextrose 1,000 mls @ 100 mls/hr 06/16/24 10:06 Dextrose 5% 1,000 Ml IVPB PRN PRN Hypoglycemia Protocol Sodium Chloride 1,000 mls @ 75 mls/hr 06/16/24 10:20 06/17/24 08:50 Normal Saline Iv IV CONT 75 mls/hr .[id number] VLADIMIR Administration Insulin Aspart 3 - 6 units 06/16/24 12:00 06/17/24 08:47 Insulin Aspart (*Bkc) 100 Units/Ml SUB-Q Not Given [facility] Protocol Insulin Aspart 1 - 3 units 06/16/24 21:00 06/16/24 20:58 Insulin Aspart (*Bkc) 100 Units/Ml SUB-Q 2 units HS VLADIMIR Administration Protocol Insulin Glargine 20 units 06/16/24 21:00 06/16/24 20:59 Insulin Glargine (*Bkc) 100 Units/Ml SUB-Q 20 units HS VLADIMIR Administration Radiology Results: ITS Impressions Head/Neck CTA 06/16/24 05:51 Impression: No acute findings. Chest X-Ray 06/16/24 05:54 Impression: Clear lungs. Brain MRI 06/16/24 14:17 IMPRESSION: 1. Acute infarct involving the right posterior frontal, parietal, superior temporal and insular areas. 2. . No abnormal enhancement. Results was notified to the physician Aparna Blanco on June 16, 2024 2 :38 PM. Labs Labs: Laboratory Results - last 24 hr 06/16/24 06/16/24 06/16/24 11:54 16:50 20:37 POC Capillary Glucose 228 H 278 H 256 H 06/17/24 08:27 POC Capillary Glucose 154 H Quality VTE Prophylaxis VTE prophylaxis: mechanical ordered Hospitalist MIPS Advance Care Plan I have confirmed that the patient's Advanced Care Plan is present, code status is documented, or surrogate decision maker is listed in patient medical record.: Yes Medication Reconciliation I have utilized all available resources to obtain, update and review the patients current medications (includes all prescriptions, OTC, herbals, cannabis, and nutritional supplements).: Yes
[2024-06-17] MEDS: CLOPIDOGREL BISULFATE 75 MG TABLET PO (11:25)
[2024-06-17] MEDS: ASPIRIN 81 MG ENTERIC TABLET PO (11:25)
[2024-06-17 11:55] LABS: Glucose Point of Care 295 mg/dl (65-105)
--- NOTE | 2024-06-17 12:01 | P.PNNEUR_ITS ---
Progress Note: A&P Assessment and Plan (1) Acute CVA (cerebrovascular accident): Code(s): I63.9 - Cerebral infarction, unspecified Status: Acute (2) Diabetic foot ulcer: Code(s): E11.621 - Type 2 diabetes mellitus with foot ulcer; L97.509 - Non-pressure chronic ulcer of other part of unspecified foot with unspecified severity Status: Acute (3) Diabetes mellitus: Code(s): E11.9 - Type 2 diabetes mellitus without complications Status: Acute Time Spent With Patient Time: Patient has multiple risk factors such as smoking and diabetes mellitus. CT angiogram of the head and neck did not show any significant abnormalities. MRI of the brain shows acute infarct in the right frontal parietal and superior temporal and insular area. I reviewed the films. Area of infarct is significantly more obvious on the diffusion scanning compared to the her flare view. I shall go ahead and start him on aspirin 81 mg a day and Plavix 75 mg a day and Lipitor 80 mg a day. A in addition he should be urged to stop smoking and try to control the risk factors such as diabetes mellitus and hypertension. at some 0.1 should look into the possibility of underlying his obstructive sleep apnea syndrome and weight issues also. Subjective Date/time seen: 06/17/24 12:01 Interval history: Patient is 53-year-old with history of diabetes mellitus presented to the hospital with weakness in the left upper limb pain he also history of osteomyelitis the left foot and diabetic polyneuropathy. He continues to have weakness in the left side of the body particular in the left upper limb. The MRI of the brain shows acute infarct in the right cerebral hemisphere. The findings include discussed below. No additional new symptoms. Review of Systems Review of Systems: All systems reviewed & are unremarkable except as noted in HPI and below Exam Narrative: Fully conscious alert and oriented to self time place and person. No aphasia or dysarthria. Mild flattening of the left nasolabial fold. No tongue deviation. Other cranial nerves within normal limits. Motor system significant weakness of the left upper limb and partial weakness the left lower limb. Normal strength in right upper and lower limb. Sensory action unremarkable. No involuntary movements are seen. Objective Data Vital Signs Vital Signs: Vital Signs - 24 hr 06/16/24 14:00 06/16/24 16:00 06/16/24 20:00 Temperature 98.1 F Pulse Rate 78 72 Respiratory Rate 16 Blood Pressure 149/74 H Pulse Oximetry 99 Oxygen Delivery Room Air 06/16/24 20:00 06/16/24 22:00 06/17/24 00:00 Temperature 98.1 F Pulse Rate 77 74 76 Respiratory Rate 18 Blood Pressure 157/72 H Pulse Oximetry 99 Oxygen Delivery 06/17/24 04:00 06/17/24 06:00 06/17/24 09:09 Temperature 97.8 F Pulse Rate 73 78 Respiratory Rate 18 Blood Pressure 144/76 H Pulse Oximetry 96 98 Oxygen Delivery Room Air 06/17/24 08:50 06/17/24 08:50 06/17/24 11:14 Temperature Pulse Rate 89 Respiratory Rate Blood Pressure Pulse Oximetry Oxygen Delivery Room Air Room Air Intake/Output Intake/Output: Intake & Output 06/14/24 06/15/24 06/16/24 06/17/24 23:59 23:59 23:59 23:59 Intake Total 2874 236 Output Total 1825 1277 Balance 1049 -1041 Meds/Results Medications: Active Medications Generic Name Dose Route Start Last Admin Trade Name Freq PRN Reason Stop Dose Admin Aspirin 81 mg 06/17/24 11:05 06/17/24 11:25 Aspirin 81 Mg Enteric Tablet PO 81 mg QAM VLADIMIR Administration Clopidogrel Bisulfate 75 mg 06/17/24 11:05 06/17/24 11:25 Clopidogrel Bisulfate 75 Mg Tablet PO 75 mg QAM VLADIMIR Administration Dextrose 12.5 gm 06/16/24 10:06 Dextrose 50% 25 Gm/50 Ml Syringe IV PUSH PRN PRN Hypoglycemia Protocol Glucagon 1 mg 06/16/24 10:06 Glucagon For Inj 1 Mg Vial IM PRN PRN Hypoglycemia Protocol Glucose 15 gm 06/16/24 10:06 Glucose Oral Gel 15 Gm Of Glucse In 37.5 Gm Tube PO PRN PRN Hypoglycemia Protocol Dextrose 1,000 mls @ 100 mls/hr 06/16/24 10:06 Dextrose 5% 1,000 Ml IVPB PRN PRN Hypoglycemia Protocol Sodium Chloride 1,000 mls @ 75 mls/hr 06/16/24 10:20 06/17/24 08:50 Normal Saline Iv IV CONT 75 mls/hr .[id number] VLADIMIR Administration Insulin Aspart 3 - 6 units 06/16/24 12:00 06/17/24 08:47 Insulin Aspart (*Bkc) 100 Units/Ml SUB-Q Not Given TIDWM [facility] Protocol Insulin Aspart 1 - 3 units 06/16/24 21:00 06/16/24 20:58 Insulin Aspart (*Bkc) 100 Units/Ml SUB-Q 2 units HS VLADIMIR Administration Protocol Insulin Glargine 20 units 06/16/24 21:00 06/16/24 20:59 Insulin Glargine (*Bkc) 100 Units/Ml SUB-Q 20 units HS [facility] Administration Simvastatin 40 mg 06/17/24 21:00 Simvastatin 20 Mg Tablet PO BEDTIME [facility] Radiology Results: ITS Impressions Head/Neck CTA 06/16/24 05:51 Impression: No acute findings. Chest X-Ray 06/16/24 05:54 Impression: Clear lungs. Brain MRI 06/16/24 14:17 IMPRESSION: 1. Acute infarct involving the right posterior frontal, parietal, superior temporal and insular areas. 2. . No abnormal enhancement. Results was notified to the physician Aparna Blanco on June 16, 2024 2 :38 PM. Labs Labs: Laboratory Results - last 24 hr 06/16/24 06/16/24 06/17/24 16:50 20:37 08:27 POC Capillary Glucose 278 H 256 H 154 H 06/17/24 11:52 POC Capillary Glucose 295 H
[2024-06-17] MEDS: INSULIN ASPART (*BKC) 100 UNITS/ML SUB-Q ×2 (12:02→21:37)
[2024-06-17 12:22] LABS: Anion Gap 4 mmol/L (4-12); Blood Urea Nitrogen 26 mg/dL (9-20); Carbon Dioxide 30 mmol/L (22-30); Chloride 99 mmol/L (98-107); Estimated CRCL calculation 67 ml/min; Estimated Glomerular Filt Rate 57; Glucose 281 mg/dL (65-110); Potassium 4.7 mmol/L (3.4-5.0); Sodium 133 mmol/L (137-145)
--- NOTE | 2024-06-17 13:45 | PCSTNOTE ---
Please refer to the Bedside Swallow Evaluation in the EMR. Please note, silent aspiration cannot be ruled out at bedside. The above pt, admitted with a dx of CVA, was seen for a swallow evaluation at bedside. He denies dysphagia stating he ate breakfast and lunch on this date without difficulty. Pt also denied having h/o choking or coughing during meals. Pt was able to dry swallow on command and exhibited a clear vocal quality before oral trials. Oral mucosa is normal; natural dentition is in good condition. Oral peripheral exam revealed lingual and labial structures to be within normal limits regarding ROM, speed and strength. Pt was positioned upright in the recliner for an optimal feeding position. He was tested with thin liquids, pudding, and cracker in controlled amounts; pudding and thin liquids were also tested in uncontrolled amounts; thin liquids were via a cup and a straw. The oral stages appeared WNL. No oral leakage or pocketing was noted. During the pharyngeal stage, swallow reflex appeared prompt & laryngeal elevation adequate. No overt s/s of aspiration were exhibited; however, silent aspiration cannot be ruled out at bedside. General impression is normal swallow ability. Recommendation: Continue current diet. Thank you for this referral.
[2024-06-17 17:09] LABS: Glucose Point of Care 166 mg/dl (65-105)
[2024-06-17 21:36] LABS: Glucose Point of Care 299 mg/dl (65-105)
[2024-06-17] MEDS: INSULIN GLARGINE (*BKC) 100 UNITS/ML 20 UNITS SUB-Q (21:36)
[2024-06-17] MEDS: SIMVASTATIN 20 MG TABLET 40 MG PO (21:36)
[2024-06-18] VITALS (10 sets, daily range): BP systolic 150–171; BP diastolic 72–83; PULSE 78–85; RESP 18–20; TEMP 36.4–36.8; O2SAT 99–100
[2024-06-18] MEDS: traZODone HCL 50 MG TABLET PO ×2 (00:22→22:41)
[2024-06-18] MEDS: SODIUM CHLORIDE 0.9% IV 1,000 ML 75 ML IV CONT (00:22)
[2024-06-18 08:34] LABS: Glucose Point of Care 156 mg/dl (65-105)
[2024-06-18] MEDS: ATORVASTATIN 40 MG TABLET PO (08:50)
[2024-06-18] MEDS: CLOPIDOGREL BISULFATE 75 MG TABLET PO (08:50)
[2024-06-18] MEDS: ASPIRIN 81 MG ENTERIC TABLET PO (08:50)
--- NOTE | 2024-06-18 09:05 | PM.IMPN ---
Progress Note: A&P Assessment and Plan (1) Acute CVA (cerebrovascular accident): Code(s): I63.9 - Cerebral infarction, unspecified Status: Acute Assessment and Plan: - Brain MRI 06/16/24 14:17 IMPRESSION: 1. Acute infarct involving the right posterior frontal, parietal, superior temporal and insular areas. 2. No abnormal enhancement. - Neurologist aware of acute CVA. - Outside window for IV thrombolysis on his presentation and treatment not administered. - Patient on acute CVA protocol. - ST/PT/OT eval and treatment. - TTE ordered. - A1C, Lipid panel ordered. - Maintains SR on telemetry stable- monitor (2) Left arm weakness: Code(s): R29.898 - Other symptoms and signs involving the musculoskeletal system Status: Acute Assessment and Plan: - Likely related to above vs less likely musculoskeletal, compressive neuropathy versus brachial plexopathy due to positional compression. - MRI +ve for acute infarct as noted above. - Labs fairly unremarkable. - CXR negative. - UA negative. - CTA head/Neck negative for acute. - SR on EKG. - Neurologist following. - Continue to implement acute CVA protocol. - TTE, A1C, pending. - Lipid Panel reviewed and LDL noted, 46. - PT/OT eval and treatment. - Fall precautions. (3) Recurrent falls: Code(s): R29.6 - Repeated falls Status: Acute Assessment and Plan: - Unclear etiology. - Possibly related to patient's acute CVA vs musculoskeletal vs other. - CTA head/neck negative. - UA negative. - CXR negative. - MRI brain showing acute CVA. - Neurologist following. - Continue PT/OT eval and treatment. - Fall precautions. - Other mgt per # 1. (4) Acute kidney injury: Code(s): N17.9 - Acute kidney failure, unspecified Status: Acute Assessment and Plan: - Unclear etiology and unsure pt's baseline kidney function with no previous labs. - Reports good oral food and fluids intake at home. - Possibly dehydration vs/+ diabetic + hypertensive nephropathy. - Given fluid bolus in ER. - 1L IVF given overnight. - Monitor renal panel closely. - Avoid nephrotoxins. - Meds dosing per renal function. (5) Hyperglycemia: Code(s): R73.9 - Hyperglycemia, unspecified Status: Acute Assessment and Plan: - Hx of DM 2. - Blood glucose monitoring AC & HS. - Started on Lantus and SSI. - A1C pending. - Diabetic diet. - Adjust insulin as needed. - Hypoglycemic protocol with insulin use. BS had been elevated- will increase lantus to 25 units at bedtime (6) Diabetic foot ulcer: Code(s): E11.621 - Type 2 diabetes mellitus with foot ulcer; L97.509 - Non-pressure chronic ulcer of other part of unspecified foot with unspecified severity Status: Acute Assessment and Plan: - Chronic. - Appears clean and non-infected. - Wound nurse consult. - Wound mgt per nursing staff. (7) HTN (hypertension): Code(s): I10 - Essential (primary) hypertension Status: Acute Assessment and Plan: - Fairly well controlled. - Hold lisinopril for now with BECCA and permissive hypertension post acute CVA. - Adjust meds as needed when stable. Plan Neurologist consulted for Left-arm weakness, MRI brain pending, adjust insulin for better blood-glucose control. Time Spent With Patient Time with patient: Greater than 35 minutes Subjective Date/time seen: 06/18/24 09:05 Interval history: Patient is 53-year-old with history of diabetes mellitus presented to the hospital with weakness in the left upper limb pain he also history of osteomyelitis the left foot and diabetic polyneuropathy. He continues to have weakness in the left side of the body particular in the left upper limb. The MRI of the brain shows acute infarct in the right cerebral hemisphere. The findings include discussed below. No additional new symptoms. seen and examined. report no issues today. working with pt/ot anticipate discharge within few days id stable/improving. Review of Systems Review of Systems: All systems reviewed & are unremarkable except as noted in HPI and below Exam Narrative: General: no acute distress HEENT: Atraumatic, PERRL, EOM, anicteric, moist mucosa. Neck: Supple. Lungs: Clear bilaterally. Heart: RRR, no murmurs. Abdomen: Soft, non-tender, obese, +ve bowel sounds X4 quadrants. Musculoskeletal: Left arm with mild-mod weakness, left leg mild weakness. Extremities: Acyanotic, no edema, +2 pedal and radial pulses. Skin: Warm and dry. Left lateral distal foot with diabetic ulcer, pink and moist with some slough and slight yellowish drainage. Neuro: Well oriented, slight left-arm weakness, left arm drift on arm raise test, good cristofer. 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 no other focal neuro deficits noted. Psych: Calm and co-operative. Objective Data Vital Signs Vital Signs: Vital Signs - 24 hr 06/17/24 09:09 06/17/24 11:14 06/17/24 12:00 Temperature Pulse Rate 82 Respiratory Rate Blood Pressure Pulse Oximetry 98 Oxygen Delivery Room Air Room Air 06/17/24 14:00 06/17/24 16:00 06/17/24 19:53 Temperature 98.1 F 97.9 F Pulse Rate 78 82 87 Respiratory Rate 16 20 Blood Pressure 153/79 H 169/84 H Pulse Oximetry 100 100 Oxygen Delivery 06/17/24 20:00 06/17/24 20:00 06/18/24 00:00 Temperature Pulse Rate 82 84 Respiratory Rate Blood Pressure Pulse Oximetry Oxygen Delivery Room Air 06/18/24 02:15 06/18/24 04:53 06/18/24 04:00 Temperature 97.5 F L 97.9 F Pulse Rate 80 78 Respiratory Rate 20 18 Blood Pressure 171/83 H 162/79 H Pulse Oximetry 100 99 Oxygen Delivery Intake/Output Intake/Output: Intake & Output 06/15/24 06/16/24 06/17/24 06/18/24 23:59 23:59 23:59 23:59 Intake Total 2874 1594 240 Output Total 1825 1677 250 Balance 1049 -83 -10 Meds/Results Medications: Active Medications Generic Name Dose Route Start Last Admin Trade Name Freq PRN Reason Stop Dose Admin Aspirin 81 mg 06/18/24 09:00 06/18/24 08:50 Aspirin 81 Mg Enteric Tablet PO 81 mg QAM VLADIMIR Administration Atorvastatin Calcium 40 mg 06/18/24 09:00 06/18/24 08:50 Atorvastatin 40 Mg Tablet PO 40 mg DAILY VLADIMIR Administration Clopidogrel Bisulfate 75 mg 06/18/24 09:00 06/18/24 08:50 Clopidogrel Bisulfate 75 Mg Tablet PO 75 mg QAM VLADIMIR Administration Dextrose 12.5 gm 06/16/24 10:06 Dextrose 50% 25 Gm/50 Ml Syringe IV PUSH PRN PRN Hypoglycemia Protocol Glucagon 1 mg 06/16/24 10:06 Glucagon For Inj 1 Mg Vial IM PRN PRN Hypoglycemia Protocol Glucose 15 gm 06/16/24 10:06 Glucose Oral Gel 15 Gm Of Glucse In 37.5 Gm Tube PO PRN PRN Hypoglycemia Protocol Dextrose 1,000 mls @ 100 mls/hr 06/16/24 10:06 Dextrose 5% 1,000 Ml IVPB PRN PRN Hypoglycemia Protocol Sodium Chloride 1,000 mls @ 75 mls/hr 06/16/24 10:20 06/18/24 05:16 Normal Saline Iv IV CONT Not Given .[id number] VLADIMIR Insulin Aspart 3 - 6 units 06/16/24 12:00 06/18/24 08:50 Insulin Aspart (*Bkc) 100 Units/Ml SUB-Q Not Given TIDWM VLADIMIR Protocol Insulin Aspart 1 - 3 units 06/16/24 21:00 06/17/24 21:37 Insulin Aspart (*Bkc) 100 Units/Ml SUB-Q 2 units HS VLADIMIR Administration Protocol Insulin Glargine 20 units 06/16/24 21:00 06/17/24 21:36 Insulin Glargine (*Bkc) 100 Units/Ml SUB-Q 20 units HS VLADIMIR Administration Simvastatin 40 mg 06/17/24 21:00 06/17/24 21:36 Simvastatin 20 Mg Tablet PO 40 mg BEDTIME VLADIMIR Administration Radiology Results: ITS Impressions Head/Neck CTA 06/16/24 05:51 Impression: No acute findings. Chest X-Ray 06/16/24 05:54 Impression: Clear lungs. Brain MRI 06/16/24 14:17 IMPRESSION: 1. Acute infarct involving the right posterior frontal, parietal, superior temporal and insular areas. 2. . No abnormal enhancement. Results was notified to the physician Aparna Blanco on June 16, 2024 2 :38 PM. Labs Labs: Laboratory Results - last 24 hr 06/17/24 06/17/24 06/17/24 11:46 11:52 17:01 Sodium 133 L Potassium 4.7 Chloride 99 Carbon Dioxide 30 Anion Gap 4 BUN 26 H D Creatinine 1.30 Estim Creat Clear Calc 67 Estimated GFR 57 L Glucose 281 H POC Capillary Glucose 295 H 166 H Calcium 9.0 06/17/24 06/18/24 19:52 08:27 Sodium Potassium Chloride Carbon Dioxide Anion Gap BUN Creatinine Estim Creat Clear Calc Estimated GFR Glucose POC Capillary Glucose 299 H 156 H Calcium Quality VTE Prophylaxis VTE prophylaxis: mechanical ordered
[2024-06-18 12:00] LABS: Glucose Point of Care 335 mg/dl (65-105)
[2024-06-18] MEDS: INSULIN ASPART (*BKC) 100 UNITS/ML SUB-Q ×2 (12:29→20:39)
[2024-06-18 17:00] LABS: Glucose Point of Care 186 mg/dl (65-105)
[2024-06-18] MEDS: SIMVASTATIN 20 MG TABLET 40 MG PO (20:40)
[2024-06-18] MEDS: INSULIN GLARGINE (*BKC) 100 UNITS/ML 25 UNITS SUB-Q (20:40)
[2024-06-18 22:14] LABS: Glucose Point of Care 312 mg/dl (65-105)
[2024-06-19] VITALS (9 sets, daily range): BP systolic 136–164; BP diastolic 69–78; PULSE 76–87; RESP 16–20; TEMP 36.4–36.8; O2SAT 98–100
[2024-06-19 08:26] LABS: Glucose Point of Care 138 mg/dl (65-105)
[2024-06-19] MEDS: CLOPIDOGREL BISULFATE 75 MG TABLET PO (09:03)
[2024-06-19] MEDS: ATORVASTATIN 40 MG TABLET PO (09:03)
[2024-06-19] MEDS: ASPIRIN 81 MG ENTERIC TABLET PO (09:03)
--- NOTE | 2024-06-19 09:19 | PM.IMPN ---
Progress Note: A&P Assessment and Plan (1) Acute CVA (cerebrovascular accident): Code(s): I63.9 - Cerebral infarction, unspecified Status: Acute Assessment and Plan: - Brain MRI 06/16/24 14:17 IMPRESSION: 1. Acute infarct involving the right posterior frontal, parietal, superior temporal and insular areas. 2. No abnormal enhancement. - Neurologist aware of acute CVA. - Outside window for IV thrombolysis on his presentation and treatment not administered. - Patient on acute CVA protocol. - ST/PT/OT eval and treatment. - TTE ordered. - A1C, Lipid panel ordered. - Maintains SR on telemetry neurology is following was started on aspirin 81 mg a day and Plavix 75 mg a day and Lipitor 80 mg a day. education provided to stop smoking and try to control the risk factors such as diabetes mellitus and hypertension. (2) Left arm weakness: Code(s): R29.898 - Other symptoms and signs involving the musculoskeletal system Status: Acute Assessment and Plan: - Likely related to above vs less likely musculoskeletal, compressive neuropathy versus brachial plexopathy due to positional compression. - MRI +ve for acute infarct as noted above. - Labs fairly unremarkable. - CXR negative. - UA negative. - CTA head/Neck negative for acute. - SR on EKG. - Neurologist following. - Continue to implement acute CVA protocol. - TTE, A1C, pending. - Lipid Panel reviewed and LDL noted, 46. - PT/OT eval and treatment. - Fall precautions. (3) Recurrent falls: Code(s): R29.6 - Repeated falls Status: Acute Assessment and Plan: - Unclear etiology. - Possibly related to patient's acute CVA vs musculoskeletal vs other. - CTA head/neck negative. - UA negative. - CXR negative. - MRI brain showing acute CVA. - Neurologist following. - Continue PT/OT eval and treatment. - Fall precautions. - Other mgt per # 1. (4) Acute kidney injury: Code(s): N17.9 - Acute kidney failure, unspecified Status: Acute Assessment and Plan: - Unclear etiology and unsure pt's baseline kidney function with no previous labs. - Reports good oral food and fluids intake at home. - Possibly dehydration vs/+ diabetic + hypertensive nephropathy. - Given fluid bolus in ER. - 1L IVF given overnight. - Monitor renal panel closely. - Avoid nephrotoxins. - Meds dosing per renal function. (5) Hyperglycemia: Code(s): R73.9 - Hyperglycemia, unspecified Status: Acute Assessment and Plan: - Hx of DM 2. - Blood glucose monitoring AC & HS. - Started on Lantus and SSI. - A1C pending. - Diabetic diet. - Adjust insulin as needed. - Hypoglycemic protocol with insulin use. BS had been elevated- will increase lantus to 25 units at bedtime (6) Diabetic foot ulcer: Code(s): E11.621 - Type 2 diabetes mellitus with foot ulcer; L97.509 - Non-pressure chronic ulcer of other part of unspecified foot with unspecified severity Status: Acute Assessment and Plan: - Chronic. - Appears clean and non-infected. - Wound nurse consult. - Wound mgt per nursing staff. (7) HTN (hypertension): Code(s): I10 - Essential (primary) hypertension Status: Acute Assessment and Plan: - Fairly well controlled. - Hold lisinopril for now with BECCA and permissive hypertension post acute CVA. - Adjust meds as needed when stable. - reviewed and stable (8) Insomnia: Code(s): G47.00 - Insomnia, unspecified Status: Acute Assessment and Plan: trazodone- will increase dose to 100 mg hs prn Time Spent With Patient Time with patient: Greater than 35 minutes Subjective Date/time seen: 06/19/24 09:19 Interval history: Patient is 53-year-old with history of diabetes mellitus presented to the hospital with weakness in the left upper limb pain he also history of osteomyelitis the left foot and diabetic polyneuropathy. He continues to have weakness in the left side of the body particular in the left upper limb. The MRI of the brain shows acute infarct in the right cerebral hemisphere. The findings include discussed below. No additional new symptoms. seen and examined. report no issues today. working with pt/ot anticipate discharge within few days id stable/improving. 06/19- seen and examined. Care coordination working on rehab. Pt was seen per neurology- started on aspirin 81 mg a day and Plavix 75 mg a day and Lipitor 80 mg a day, encouraged to quit smoking, try to control the risk factors such as diabetes mellitus and hypertension. Continue to work with PT/OT. 50 mg of trazodone was given to help with insomnia- states did not work quite as well- will increase dose today. other than that- reports no complains. Review of Systems Review of Systems: All systems reviewed & are unremarkable except as noted in HPI and below Exam Narrative: General: no acute distress HEENT: Atraumatic, PERRL, EOM, anicteric, moist mucosa. Neck: Supple. Lungs: Clear bilaterally. Heart: RRR, no murmurs. Abdomen: Soft, non-tender, obese, +ve bowel sounds X4 quadrants. Musculoskeletal: Left arm with mild-mod weakness, left leg mild weakness. Extremities: Acyanotic, no edema, +2 pedal and radial pulses. Skin: Warm and dry. Left lateral distal foot with diabetic ulcer, pink and moist with some slough and slight yellowish drainage. Neuro: Well oriented, slight left-arm weakness, left arm drift on arm raise test, good cristofer. 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 no other focal neuro deficits noted. Psych: Calm and co-operative. Objective Data Vital Signs Vital Signs: Vital Signs - 24 hr 06/18/24 14:00 06/18/24 12:00 06/18/24 16:00 Temperature 98.2 F Pulse Rate 85 83 80 Respiratory Rate 18 Blood Pressure 150/72 H Pulse Oximetry 100 Oxygen Delivery 06/18/24 19:42 06/18/24 20:00 06/18/24 20:00 Temperature 98.1 F Pulse Rate 85 85 83 Respiratory Rate 20 20 Blood Pressure 153/76 H Pulse Oximetry 100 100 Oxygen Delivery Room Air 06/19/24 00:00 06/19/24 03:50 06/19/24 04:00 Temperature 98.2 F Pulse Rate 84 85 84 Respiratory Rate 20 Blood Pressure 136/69 Pulse Oximetry 98 Oxygen Delivery Intake/Output Intake/Output: Intake & Output 06/16/24 06/17/24 06/18/24 06/19/24 23:59 23:59 23:59 23:59 Intake Total 2874 1594 834 390 Output Total 9269 0947 1150 Balance 1049 -83 -316 390 Meds/Results Medications: Active Medications Generic Name Dose Route Start Last Admin Trade Name Freq PRN Reason Stop Dose Admin Aspirin 81 mg 06/18/24 09:00 06/19/24 09:03 Aspirin 81 Mg Enteric Tablet PO 81 mg QAM VLADIMIR Administration Atorvastatin Calcium 40 mg 06/18/24 09:00 06/19/24 09:03 Atorvastatin 40 Mg Tablet PO 40 mg DAILY VLADIMIR Administration Clopidogrel Bisulfate 75 mg 06/18/24 09:00 06/19/24 09:03 Clopidogrel Bisulfate 75 Mg Tablet PO 75 mg QAM VLADIMIR Administration Dextrose 12.5 gm 06/16/24 10:06 Dextrose 50% 25 Gm/50 Ml Syringe IV PUSH PRN PRN Hypoglycemia Protocol Glucagon 1 mg 06/16/24 10:06 Glucagon For Inj 1 Mg Vial IM PRN PRN Hypoglycemia Protocol Glucose 15 gm 06/16/24 10:06 Glucose Oral Gel 15 Gm Of Glucse In 37.5 Gm Tube PO PRN PRN Hypoglycemia Protocol Dextrose 1,000 mls @ 100 mls/hr 06/16/24 10:06 Dextrose 5% 1,000 Ml IVPB PRN PRN Hypoglycemia Protocol Insulin Aspart 3 - 6 units 06/16/24 12:00 06/19/24 09:04 Insulin Aspart (*Bkc) 100 Units/Ml SUB-Q Not Given TIDWM VLADIMIR Protocol Insulin Aspart 1 - 3 units 06/16/24 21:00 06/18/24 20:39 Insulin Aspart (*Bkc) 100 Units/Ml SUB-Q 2 units HS VLADIMIR Administration Protocol Insulin Glargine 25 units 06/18/24 21:00 06/18/24 20:40 Insulin Glargine (*Bkc) 100 Units/Ml SUB-Q 25 units HS VLADIMIR Administration Simvastatin 40 mg 06/17/24 21:00 06/18/24 20:40 Simvastatin 20 Mg Tablet PO 40 mg BEDTIME VLADIMIR Administration Radiology Results: ITS Impressions Head/Neck CTA 06/16/24 05:51 Impression: No acute findings. Chest X-Ray 06/16/24 05:54 Impression: Clear lungs. Brain MRI 06/16/24 14:17 IMPRESSION: 1. Acute infarct involving the right posterior frontal, parietal, superior temporal and insular areas. 2. . No abnormal enhancement. Results was notified to the physician Aparna Blanco on June 16, 2024 2 :38 PM. Labs Labs: Laboratory Results - last 24 hr 06/18/24 06/18/24 06/18/24 11:56 16:52 19:42 POC Capillary Glucose 335 H 186 H 312 H 06/19/24 07:56 POC Capillary Glucose 138 H Quality VTE Prophylaxis VTE prophylaxis: mechanical ordered
[2024-06-19 09:57] LABS: Hematocrit 31.8 % (42.0-52.0); Hemoglobin 10.5 g/dL (14.0-18.0); Mean Corpuscular Hemoglobin 26.3 pg (26-34); Mean Corpuscular Volume 79.5 fl (80-100); Mean Platelet Volume 8.7 fl (7.4-10.4); Platelet Count Result 273 k/mm3 (150-375); Red Cell Distribution Width 13.8 % (11.5-14.5); White Blood Count 8.2 K/mm3 (4.5-10.0)
[2024-06-19 10:07] LABS: Anion Gap 2 mmol/L (4-12); Blood Urea Nitrogen 21 mg/dL (9-20); Carbon Dioxide 32 mmol/L (22-30); Chloride 101 mmol/L (98-107); Estimated CRCL calculation 67 ml/min; Estimated Glomerular Filt Rate 57; Glucose 221 mg/dL (65-110); Potassium 4.7 mmol/L (3.4-5.0); Sodium 135 mmol/L (137-145)
[2024-06-19 12:09] LABS: Glucose Point of Care 253 mg/dl (65-105)
[2024-06-19] MEDS: INSULIN ASPART (*BKC) 100 UNITS/ML SUB-Q ×2 (12:40→21:00)
[2024-06-19 16:51] LABS: Glucose Point of Care 183 mg/dl (65-105)
--- NOTE | 2024-06-19 18:09 | WPDNEUROPN ---
Progress Note: A&P Assessment and Plan (1) Acute CVA (cerebrovascular accident): Code(s): I63.9 - Cerebral infarction, unspecified Status: Acute Assessment and Plan: MRI of the brain has shown an acute infarct in the right cerebral hemisphere posterior frontal and parietal and superior temporal and insular areas. CT angiogram head and neck did not show any significant large vessel occlusion. (2) Diabetes mellitus: Code(s): E11.9 - Type 2 diabetes mellitus without complications Status: Acute (3) HTN (hypertension): Code(s): I10 - Essential (primary) hypertension Status: Acute Plan Lipid profile is awaited. I noted that he is on atorvastatin 40 mg a day and aspirin and Plavix 75 mg a day have discontinued Zocor and based upon the LDL we can make changes in the dose of atorvastatin further if necessary. Physical therapy and occupational therapy should continue and treatment underlying risk factors should continue. Subjective Date/time seen: 06/19/24 18:09 Interval history: The patient is 53-year-old with history of CVA with left hemiparesis and diabetes mellitus. He is doing fair. Physical therapy has been working with him. His osteomyelitis of the left foot also. He is now on dual antiplatelets and to statins. Review of Systems Review of Systems: All systems reviewed & are unremarkable except as noted in HPI and below Exam Narrative: Fully conscious alert oriented to self time, place and person. No aphasia or dysarthria. Cranial nerves into testing intact. Motor system appears to have moderate weakness of the left hand power grade 4/5 and mild weakness of the left lower limb power grade 4 +. Left foot is held bed due to osteomyelitis. No additional findings were noted. Objective Data Vital Signs Vital Signs: Vital Signs - 24 hr 06/18/24 19:42 06/18/24 20:00 06/18/24 20:00 Temperature 98.1 F Pulse Rate 85 85 83 Respiratory Rate 20 20 Blood Pressure 153/76 H Pulse Oximetry 100 100 Oxygen Delivery Room Air 06/19/24 00:00 06/19/24 03:50 06/19/24 04:00 Temperature 98.2 F Pulse Rate 84 85 84 Respiratory Rate 20 Blood Pressure 136/69 Pulse Oximetry 98 Oxygen Delivery 06/19/24 08:00 06/19/24 08:00 06/19/24 12:00 Temperature Pulse Rate 82 85 Respiratory Rate Blood Pressure Pulse Oximetry Oxygen Delivery Room Air 06/19/24 14:00 06/19/24 16:00 Temperature 97.6 F Pulse Rate 84 76 Respiratory Rate 18 Blood Pressure 164/74 H Pulse Oximetry 100 Oxygen Delivery Intake/Output Intake/Output: Intake & Output 06/16/24 06/17/24 06/18/24 06/19/24 23:59 23:59 23:59 23:59 Intake Total 2874 7171 281 1189 Output Total 1825 1677 1150 200 Balance 6056 -83 -150 910 Meds/Results Medications: Active Medications Generic Name Dose Route Start Last Admin Trade Name Freq PRN Reason Stop Dose Admin Aspirin 81 mg 06/18/24 09:00 06/19/24 09:03 Aspirin 81 Mg Enteric Tablet PO 81 mg QAM VLADIMIR Administration Atorvastatin Calcium 40 mg 06/18/24 09:00 06/19/24 09:03 Atorvastatin 40 Mg Tablet PO 40 mg DAILY VLADIMIR Administration Clopidogrel Bisulfate 75 mg 06/18/24 09:00 06/19/24 09:03 Clopidogrel Bisulfate 75 Mg Tablet PO 75 mg QAM VLADIMIR Administration Dextrose 12.5 gm 06/16/24 10:06 Dextrose 50% 25 Gm/50 Ml Syringe IV PUSH PRN PRN Hypoglycemia Protocol Glucagon 1 mg 06/16/24 10:06 Glucagon For Inj 1 Mg Vial IM PRN PRN Hypoglycemia Protocol Glucose 15 gm 06/16/24 10:06 Glucose Oral Gel 15 Gm Of Glucse In 37.5 Gm Tube PO PRN PRN Hypoglycemia Protocol Dextrose 1,000 mls @ 100 mls/hr 06/16/24 10:06 Dextrose 5% 1,000 Ml IVPB PRN PRN Hypoglycemia Protocol Insulin Aspart 3 - 6 units 06/16/24 12:00 06/19/24 17:30 Insulin Aspart (*Bkc) 100 Units/Ml SUB-Q Not Given TIDWM VLADIMIR Protocol Insulin Aspart 1 - 3 units 06/16/24 21:00 06/18/24 20:39 Insulin Aspart (*Bkc) 100 Units/Ml SUB-Q 2 units HS VLADIMIR Administration Protocol Insulin Glargine 25 units 06/18/24 21:00 06/18/24 20:40 Insulin Glargine (*Bkc) 100 Units/Ml SUB-Q 25 units HS VLADIMIR Administration Simvastatin 40 mg 06/17/24 21:00 06/18/24 20:40 Simvastatin 20 Mg Tablet PO 40 mg BEDTIME VLADIMIR Administration Trazodone HCl 100 mg 06/19/24 11:21 Trazodone Hcl 50 Mg Tablet PO HS PRN Insomnia Radiology Results: ITS Impressions Head/Neck CTA 06/16/24 05:51 Impression: No acute findings. Chest X-Ray 06/16/24 05:54 Impression: Clear lungs. Brain MRI 06/16/24 14:17 IMPRESSION: 1. Acute infarct involving the right posterior frontal, parietal, superior temporal and insular areas. 2. . No abnormal enhancement. Results was notified to the physician Aparna Blanco on June 16, 2024 2 :38 PM. Labs Labs: Laboratory Results - last 24 hr 06/18/24 06/19/24 06/19/24 19:42 07:56 09:51 WBC 8.2 RBC 4.00 L Hgb 10.5 L Hct 31.8 L MCV 79.5 L MCH 26.3 MCHC 33.0 RDW 13.8 Plt Count 273 MPV 8.7 Sodium 135 L Potassium 4.7 Chloride 101 Carbon Dioxide 32 H Anion Gap 2 L BUN 21 H Creatinine 1.30 Estim Creat Clear Calc 67 Estimated GFR 57 L Glucose 221 H POC Capillary Glucose 312 H 138 H Calcium 9.0 06/19/24 06/19/24 11:51 16:38 WBC RBC Hgb Hct MCV MCH MCHC RDW Plt Count MPV Sodium Potassium Chloride Carbon Dioxide Anion Gap BUN Creatinine Estim Creat Clear Calc Estimated GFR Glucose POC Capillary Glucose 253 H 183 H Calcium
[2024-06-19 18:52] LABS: Cholesterol 142 mg/dL (0-200); HDL Direct 28 mg/dL; Triglycerides 216 mg/dL (<150)
[2024-06-19 19:04] LABS: LDL Cholesterol Direct 66 mg/dL
[2024-06-19 20:24] LABS: Glucose Point of Care 372 mg/dl (65-105)
[2024-06-19] MEDS: INSULIN GLARGINE (*BKC) 100 UNITS/ML 25 UNITS SUB-Q (21:00)
[2024-06-19] MEDS: traZODone HCL 50 MG TABLET 100 MG PO (22:07)
[2024-06-20] VITALS (9 sets, daily range): BP systolic 139–169; BP diastolic 81–83; PULSE 74–88; RESP 18; TEMP 36.6–36.9; O2SAT 99–100
--- NOTE | 2024-06-20 07:43 | P.PNIM_ITS ---
Progress Note: A&P Assessment and Plan (1) Acute CVA (cerebrovascular accident): Code(s): I63.9 - Cerebral infarction, unspecified Status: Acute Assessment and Plan: - Brain MRI 06/16/24 14:17 IMPRESSION: 1. Acute infarct involving the right posterior frontal, parietal, superior temporal and insular areas. 2. No abnormal enhancement. - Neurologist aware of acute CVA. - Outside window for IV thrombolysis on his presentation and treatment not administered. - Patient on acute CVA protocol. - ST/PT/OT eval and treatment. - TTE ordered. - A1C, Lipid panel ordered. - Maintains SR on telemetry neurology is following was started on aspirin 81 mg a day and Plavix 75 mg a day and Lipitor 80 mg a day. education provided to stop smoking and try to control the risk factors such as diabetes mellitus and hypertension. (2) Left arm weakness: Code(s): R29.898 - Other symptoms and signs involving the musculoskeletal system Status: Acute Assessment and Plan: - Likely related to above vs less likely musculoskeletal, compressive neuropathy versus brachial plexopathy due to positional compression. - MRI +ve for acute infarct as noted above. - Labs fairly unremarkable. - CXR negative. - UA negative. - CTA head/Neck negative for acute. - SR on EKG. - Neurologist following. - Continue to implement acute CVA protocol. - TTE, A1C, pending. - Lipid Panel reviewed and LDL noted, 46. - PT/OT eval and treatment. - Fall precautions. (3) Recurrent falls: Code(s): R29.6 - Repeated falls Status: Acute Assessment and Plan: - Unclear etiology. - Possibly related to patient's acute CVA vs musculoskeletal vs other. - CTA head/neck negative. - UA negative. - CXR negative. - MRI brain showing acute CVA. - Neurologist following. - Continue PT/OT eval and treatment. - Fall precautions. - Other mgt per # 1. (4) Acute kidney injury: Code(s): N17.9 - Acute kidney failure, unspecified Status: Acute Assessment and Plan: - Unclear etiology and unsure pt's baseline kidney function with no previous labs. - Reports good oral food and fluids intake at home. - Possibly dehydration vs/+ diabetic + hypertensive nephropathy. - Given fluid bolus in ER. - 1L IVF given overnight. - Monitor renal panel closely. - Avoid nephrotoxins. - Meds dosing per renal function. (5) Hyperglycemia: Code(s): R73.9 - Hyperglycemia, unspecified Status: Acute Assessment and Plan: - Hx of DM 2. - Blood glucose monitoring AC & HS. - Started on Lantus and SSI. - A1C pending. - Diabetic diet. - Adjust insulin as needed. - Hypoglycemic protocol with insulin use. BS had been elevated- will increase lantus to 25 units at bedtime (6) Diabetic foot ulcer: Code(s): E11.621 - Type 2 diabetes mellitus with foot ulcer; L97.509 - Non-pressure chronic ulcer of other part of unspecified foot with unspecified severity Status: Acute Assessment and Plan: - Chronic. - Appears clean and non-infected. - Wound nurse consult. - Wound mgt per nursing staff. will benefit from glp 1 for better bs control- will discuss (7) HTN (hypertension): Code(s): I10 - Essential (primary) hypertension Status: Acute Assessment and Plan: - Fairly well controlled. - Hold lisinopril for now with BECCA and permissive hypertension post acute CVA. - Adjust meds as needed when stable. - reviewed and stable (8) Insomnia: Code(s): G47.00 - Insomnia, unspecified Status: Acute Assessment and Plan: trazodone- will increase dose to 100 mg hs prn slept a little better last night- will keep dose as it is for now Time Spent With Patient Time with patient: Greater than 35 minutes Subjective Date/time seen: 06/20/24 07:43 Interval history: The patient is 53-year-old with history of CVA with left hemiparesis and diabetes mellitus. He is doing fair. Physical therapy has been working with him. He is on asa and statin. Wound care following with him as home Friday/Friday for wound- h/o osteomyelitis last January with left small toe amputation this past January. following with qa specialist at [place]. Reports some congestion- flonase is ordered. Still some sleeping issues- trazodone was increased last night, so slept a little better. Review of Systems Review of Systems: All systems reviewed & are unremarkable except as noted in HPI and below Exam Narrative: General: no acute distress HEENT: Atraumatic, PERRL, EOM, anicteric, moist mucosa. Neck: Supple. Lungs: Clear bilaterally. Heart: RRR, no murmurs. Abdomen: Soft, non-tender, obese, +ve bowel sounds X4 quadrants. Musculoskeletal: Left arm with mild-mod weakness, left leg mild weakness. Extremities: Acyanotic, no edema, +2 pedal and radial pulses. Skin: Warm and dry. Left lateral distal foot with diabetic ulcer, pink and moist with some slough and slight yellowish drainage. Neuro: Well oriented, slight left-arm weakness, left arm drift on arm raise test, good cristofer. 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 no other focal neuro deficits noted. Psych: Calm and co-operative. Objective Data Vital Signs Vital Signs: Vital Signs - 24 hr 06/19/24 08:00 06/19/24 08:00 06/19/24 12:00 Temperature Pulse Rate 82 85 Respiratory Rate Blood Pressure Pulse Oximetry Oxygen Delivery Room Air 06/19/24 14:00 06/19/24 16:00 06/19/24 20:57 Temperature 97.6 F 98.2 F Pulse Rate 84 76 87 Respiratory Rate 18 16 Blood Pressure 164/74 H 139/78 Pulse Oximetry 100 100 Oxygen Delivery 06/19/24 20:00 06/19/24 20:00 06/20/24 00:00 Temperature Pulse Rate 87 86 86 Respiratory Rate 16 Blood Pressure Pulse Oximetry 100 Oxygen Delivery Room Air 06/20/24 04:00 06/20/24 06:00 Temperature 98.5 F Pulse Rate 74 87 Respiratory Rate 18 Blood Pressure 139/81 Pulse Oximetry 100 Oxygen Delivery Intake/Output Intake/Output: Intake & Output 06/17/24 06/18/24 06/19/24 06/20/24 23:59 23:59 23:59 23:59 Intake Total 2735 123 9013 250 Output Total 1677 1150 200 Balance -83 -316 910 250 Meds/Results Medications: Active Medications Generic Name Dose Route Start Last Admin Trade Name Freq PRN Reason Stop Dose Admin Aspirin 81 mg 06/18/24 09:00 06/19/24 09:03 Aspirin 81 Mg Enteric Tablet PO 81 mg QAM VLADIMIR Administration Atorvastatin Calcium 40 mg 06/18/24 09:00 06/19/24 09:03 Atorvastatin 40 Mg Tablet PO 40 mg DAILY VLADIMIR Administration Clopidogrel Bisulfate 75 mg 06/18/24 09:00 06/19/24 09:03 Clopidogrel Bisulfate 75 Mg Tablet PO 75 mg QAM VLADIMIR Administration Dextrose 12.5 gm 06/16/24 10:06 Dextrose 50% 25 Gm/50 Ml Syringe IV PUSH PRN PRN Hypoglycemia Protocol Glucagon 1 mg 06/16/24 10:06 Glucagon For Inj 1 Mg Vial IM PRN PRN Hypoglycemia Protocol Glucose 15 gm 06/16/24 10:06 Glucose Oral Gel 15 Gm Of Glucse In 37.5 Gm Tube PO PRN PRN Hypoglycemia Protocol Dextrose 1,000 mls @ 100 mls/hr 06/16/24 10:06 Dextrose 5% 1,000 Ml IVPB PRN PRN Hypoglycemia Protocol Insulin Aspart 3 - 6 units 06/16/24 12:00 06/19/24 17:30 Insulin Aspart (*Bkc) 100 Units/Ml SUB-Q Not Given TIDWM VLADIMIR Protocol Insulin Aspart 1 - 3 units 06/16/24 21:00 06/19/24 21:00 Insulin Aspart (*Bkc) 100 Units/Ml SUB-Q 3 units HS VLADIMIR Administration Protocol Insulin Glargine 25 units 06/18/24 21:00 06/19/24 21:00 Insulin Glargine (*Bkc) 100 Units/Ml SUB-Q 25 units HS VLADIMIR Administration Trazodone HCl 100 mg 06/19/24 11:21 06/19/24 22:07 Trazodone Hcl 50 Mg Tablet PO 100 mg HS PRN Administration Insomnia Radiology Results: ITS Impressions Head/Neck CTA 06/16/24 05:51 Impression: No acute findings. Chest X-Ray 06/16/24 05:54 Impression: Clear lungs. Brain MRI 06/16/24 14:17 IMPRESSION: 1. Acute infarct involving the right posterior frontal, parietal, superior temporal and insular areas. 2. . No abnormal enhancement. Results was notified to the physician Aparna Blanco on June 16, 2024 2 :38 PM. Labs Labs: Laboratory Results - last 24 hr 06/19/24 06/19/24 06/19/24 07:56 09:51 11:51 WBC 8.2 RBC 4.00 L Hgb 10.5 L Hct 31.8 L MCV 79.5 L MCH 26.3 MCHC 33.0 RDW 13.8 Plt Count 273 MPV 8.7 Sodium 135 L Potassium 4.7 Chloride 101 Carbon Dioxide 32 H Anion Gap 2 L BUN 21 H Creatinine 1.30 Estim Creat Clear Calc 67 Estimated GFR 57 L Glucose 221 H POC Capillary Glucose 138 H 253 H Calcium 9.0 Triglycerides 216 H Cholesterol 142 LDL Cholesterol Direct 66 HDL Direct 28 06/19/24 06/19/24 16:38 19:44 WBC RBC Hgb Hct MCV MCH MCHC RDW Plt Count MPV Sodium Potassium Chloride Carbon Dioxide Anion Gap BUN Creatinine Estim Creat Clear Calc Estimated GFR Glucose POC Capillary Glucose 183 H 372 H Calcium Triglycerides Cholesterol LDL Cholesterol Direct HDL Direct Quality VTE Prophylaxis VTE prophylaxis: mechanical ordered
[2024-06-20 08:10] LABS: Glucose Point of Care 129 mg/dl (65-105)
[2024-06-20] MEDS: ASPIRIN 81 MG ENTERIC TABLET PO (09:18)
[2024-06-20] MEDS: CLOPIDOGREL BISULFATE 75 MG TABLET PO (09:18)
[2024-06-20] MEDS: ATORVASTATIN 40 MG TABLET PO (09:19)
[2024-06-20 11:48] LABS: Glucose Point of Care 291 mg/dl (65-105)
[2024-06-20] MEDS: INSULIN ASPART (*BKC) 100 UNITS/ML SUB-Q ×2 (12:08→20:57)
[2024-06-20 17:01] LABS: Glucose Point of Care 178 mg/dl (65-105)
[2024-06-20 20:09] LABS: Glucose Point of Care 405 mg/dl (65-105)
[2024-06-20] MEDS: INSULIN GLARGINE (*BKC) 100 UNITS/ML 25 UNITS SUB-Q (20:57)
[2024-06-20] MEDS: FLUTICASONE PROPIONATE 0.05% NA SPR 16 GM BTL (*BKC) 1 SPRAY NASAL (20:57)
[2024-06-20] MEDS: traZODone HCL 50 MG TABLET 100 MG PO ×2 (22:09→22:13)
[2024-06-21] VITALS (9 sets, daily range): BP systolic 125–146; BP diastolic 78–83; PULSE 76–94; RESP 16–20; TEMP 36.3–36.7; O2SAT 100
[2024-06-21 07:56] LABS: Glucose Point of Care 112 mg/dl (65-105)
--- NOTE | 2024-06-21 07:57 | P.PNIM_ITS ---
Progress Note: A&P Assessment and Plan (1) Acute CVA (cerebrovascular accident): Code(s): I63.9 - Cerebral infarction, unspecified Status: Acute Assessment and Plan: - Brain MRI 06/16/24 14:17 IMPRESSION: 1. Acute infarct involving the right posterior frontal, parietal, superior temporal and insular areas. 2. No abnormal enhancement. - Neurologist aware of acute CVA. - Outside window for IV thrombolysis on his presentation and treatment not administered. - Patient on acute CVA protocol. - ST/PT/OT eval and treatment. - TTE ordered. - A1C, Lipid panel ordered. - Maintains SR on telemetry neurology is following was started on aspirin 81 mg a day and Plavix 75 mg a day and Lipitor 80 mg a day. education provided to stop smoking and try to control the risk factors such as diabetes mellitus and hypertension. -continue working with pt/ot- awaiting DOMONIQUE/placement (2) Left arm weakness: Code(s): R29.898 - Other symptoms and signs involving the musculoskeletal system Status: Acute Assessment and Plan: - Likely related to above vs less likely musculoskeletal, compressive neuropathy versus brachial plexopathy due to positional compression. - MRI +ve for acute infarct as noted above. - Labs fairly unremarkable. - CXR negative. - UA negative. - CTA head/Neck negative for acute. - SR on EKG. - Neurologist following. - Continue to implement acute CVA protocol. - TTE, A1C, pending. - Lipid Panel reviewed and LDL noted, 46. - PT/OT eval and treatment. - Fall precautions. (3) Recurrent falls: Code(s): R29.6 - Repeated falls Status: Acute Assessment and Plan: - Unclear etiology. - Possibly related to patient's acute CVA vs musculoskeletal vs other. - CTA head/neck negative. - UA negative. - CXR negative. - MRI brain showing acute CVA. - Neurologist following. - Continue PT/OT eval and treatment. - Fall precautions. - Other mgt per # 1. (4) Acute kidney injury: Code(s): N17.9 - Acute kidney failure, unspecified Status: Acute Assessment and Plan: - Unclear etiology and unsure pt's baseline kidney function with no previous labs. - Possibly dehydration vs/+ diabetic + hypertensive nephropathy. - Given fluid bolus in ER. - Monitor renal panel closely. - Avoid nephrotoxins. - Meds dosing per renal function. (5) Hyperglycemia: Code(s): R73.9 - Hyperglycemia, unspecified Status: Acute Assessment and Plan: - Hx of DM 2. - Blood glucose monitoring AC & HS. - Started on Lantus and SSI. - A1C pending. - Diabetic diet. - Adjust insulin as needed. - Hypoglycemic protocol with insulin use. lantus to 25 units at bedtime- monitor (6) Diabetic foot ulcer: Code(s): E11.621 - Type 2 diabetes mellitus with foot ulcer; L97.509 - Non-pressure chronic ulcer of other part of unspecified foot with unspecified severity Status: Acute Assessment and Plan: - Chronic. - Appears clean and non-infected. - Wound nurse consult. - Wound mgt per nursing staff. will benefit from glp 1 for better bs control- will discuss (7) HTN (hypertension): Code(s): I10 - Essential (primary) hypertension Status: Acute Assessment and Plan: - Fairly well controlled. - Hold lisinopril for now with BECCA and permissive hypertension post acute CVA. - Adjust meds as needed when stable. - reviewed and stable (8) Insomnia: Code(s): G47.00 - Insomnia, unspecified Status: Acute Assessment and Plan: trazodone- 100 mg hs prn Time Spent With Patient Time with patient: Greater than 35 minutes Subjective Date/time seen: 06/21/24 07:57 Interval history: The patient is 53-year-old with history of CVA with left hemiparesis and diabete s mellitus. He is doing fair. Physical therapy has been working with him. He is on asa and statin. Wound care following with him as home Friday/Friday for wound- h/o osteomyelitis last January with left small toe amputation this past January. following with early intervention specialist at [place]. Reports some congestion- flonase is ordered. Still some sleeping issues- trazodone was increased last night, so slept a little better. 06/21 seen and examined. no acute events overnight. anticipate discharge once placement is confirmed. Review of Systems Review of Systems: All systems reviewed & are unremarkable except as noted in HPI and below Exam Narrative: General: no acute distress HEENT: Atraumatic, PERRL, EOM, anicteric, moist mucosa. Neck: Supple. Lungs: Clear bilaterally. Heart: RRR, no murmurs. Abdomen: Soft, non-tender, obese, +ve bowel sounds X4 quadrants. Musculoskeletal: Left arm with mild-mod weakness, left leg mild weakness. Extremities: Acyanotic, no edema, +2 pedal and radial pulses. Skin: Warm and dry. Left lateral distal foot with diabetic ulcer, pink and moist with some slough and slight yellowish drainage. Neuro: Well oriented, slight left-arm weakness, left arm drift on arm raise test, good cristofer. 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 no other focal neuro deficits noted. Psych: Calm and co-operative. Objective Data Vital Signs Vital Signs: Vital Signs - 24 hr 06/20/24 09:18 06/20/24 09:18 06/20/24 12:00 Temperature Pulse Rate 77 86 Respiratory Rate Blood Pressure Pulse Oximetry Oxygen Delivery Room Air 06/20/24 14:00 06/20/24 16:00 06/20/24 20:35 Temperature 98.1 F 98 F Pulse Rate 84 81 88 Respiratory Rate 18 18 Blood Pressure 145/83 H 169/83 H Pulse Oximetry 99 100 Oxygen Delivery 06/20/24 20:00 06/20/24 20:00 06/21/24 00:00 Temperature Pulse Rate 88 88 85 Respiratory Rate 18 Blood Pressure Pulse Oximetry 100 Oxygen Delivery Room Air 06/21/24 04:00 06/21/24 06:00 Temperature 98.1 F Pulse Rate 76 94 Respiratory Rate 20 Blood Pressure 128/78 Pulse Oximetry 100 Oxygen Delivery Intake/Output Intake/Output: Intake & Output 06/18/24 06/19/24 06/20/24 06/21/24 23:59 23:59 23:59 23:59 Intake Total 834 1110 1330 350 Output Total 1150 200 Balance -215 404 1566 350 Meds/Results Medications: Active Medications Generic Name Dose Route Start Last Admin Trade Name Freq PRN Reason Stop Dose Admin Aspirin 81 mg 06/18/24 09:00 06/20/24 09:18 Aspirin 81 Mg Enteric Tablet PO 81 mg QAM VLADIMIR Administration Atorvastatin Calcium 40 mg 06/18/24 09:00 06/20/24 09:19 Atorvastatin 40 Mg Tablet PO 40 mg DAILY VLADIMIR Administration Clopidogrel Bisulfate 75 mg 06/18/24 09:00 06/20/24 09:18 Clopidogrel Bisulfate 75 Mg Tablet PO 75 mg QAM VLADIMIR Administration Dextrose 12.5 gm 06/16/24 10:06 Dextrose 50% 25 Gm/50 Ml Syringe IV PUSH PRN PRN Hypoglycemia Protocol Fluticasone Propionate 1 spray 06/20/24 21:00 06/20/24 20:57 Fluticasone Propionate 0.05% Na Spr 16 Gm Btl (*Bkc) NASAL 1 spray Q12HR VLADIMIR Administration Glucagon 1 mg 06/16/24 10:06 Glucagon For Inj 1 Mg Vial IM PRN PRN Hypoglycemia Protocol Glucose 15 gm 06/16/24 10:06 Glucose Oral Gel 15 Gm Of Glucse In 37.5 Gm Tube PO PRN PRN Hypoglycemia Protocol Dextrose 1,000 mls @ 100 mls/hr 06/16/24 10:06 Dextrose 5% 1,000 Ml IVPB PRN PRN Hypoglycemia Protocol Insulin Aspart 3 - 6 units 06/16/24 12:00 06/20/24 18:19 Insulin Aspart (*Bkc) 100 Units/Ml SUB-Q Not Given TIDWM VLADIMIR Protocol Insulin Aspart 1 - 3 units 06/16/24 21:00 06/20/24 20:57 Insulin Aspart (*Bkc) 100 Units/Ml SUB-Q 3 units HS VLADIIMR Administration Protocol Insulin Glargine 25 units 06/18/24 21:00 06/20/24 20:57 Insulin Glargine (*Bkc) 100 Units/Ml SUB-Q 25 units HS VLADIMIR Administration Trazodone HCl 100 mg 06/19/24 11:21 06/20/24 22:13 Trazodone Hcl 50 Mg Tablet PO 100 mg HS PRN Administration Insomnia Radiology Results: ITS Impressions Head/Neck CTA 06/16/24 05:51 Impression: No acute findings. Chest X-Ray 06/16/24 05:54 Impression: Clear lungs. Brain MRI 06/16/24 14:17 IMPRESSION: 1. Acute infarct involving the right posterior frontal, parietal, superior temporal and insular areas. 2. . No abnormal enhancement. Results was notified to the physician Aparna Blanco on June 16, 2024 2 :38 PM. Labs Labs: Laboratory Results - last 24 hr 06/20/24 06/20/24 06/20/24 07:58 11:38 16:48 POC Capillary Glucose 129 H 291 H 178 H 06/20/24 06/21/24 20:06 07:47 POC Capillary Glucose 405 H 112 H Quality VTE Prophylaxis VTE prophylaxis: mechanical ordered
[2024-06-21] MEDS: ASPIRIN 81 MG ENTERIC TABLET PO (08:56)
[2024-06-21] MEDS: ATORVASTATIN 40 MG TABLET PO (08:56)
[2024-06-21] MEDS: CLOPIDOGREL BISULFATE 75 MG TABLET PO (08:57)
[2024-06-21] MEDS: FLUTICASONE PROPIONATE 0.05% NA SPR 16 GM BTL (*BKC) 1 SPRAY NASAL ×2 (08:57→21:42)
[2024-06-21 11:38] LABS: Glucose Point of Care 224 mg/dl (65-105)
[2024-06-21] MEDS: INSULIN ASPART (*BKC) 100 UNITS/ML SUB-Q ×3 (11:43→21:38)
[2024-06-21 16:43] LABS: Glucose Point of Care 300 mg/dl (65-105)
[2024-06-21 20:58] LABS: Glucose Point of Care 206 mg/dl (65-105)
[2024-06-21] MEDS: INSULIN GLARGINE (*BKC) 100 UNITS/ML 25 UNITS SUB-Q (21:38)
[2024-06-22] VITALS (8 sets, daily range): BP systolic 122–147; BP diastolic 76–86; PULSE 83–91; RESP 16–18; TEMP 36.6–36.7; O2SAT 99–100
[2024-06-22 08:04] LABS: Glucose Point of Care 115 mg/dl (65-105)
--- NOTE | 2024-06-22 09:13 | P.DS_ITS ---
DS: Admitting Diagnosis Discharge Date 06/22 Admitting Diagnosis lt arm weakness DS: Discharge Diagnosis Discharge Diagnosis (1) Acute CVA (cerebrovascular accident): Code(s): I63.9 - Cerebral infarction, unspecified Status: Acute (2) Left arm weakness: Code(s): R29.898 - Other symptoms and signs involving the musculoskeletal system Status: Acute (3) Recurrent falls: Code(s): R29.6 - Repeated falls Status: Acute (4) Acute kidney injury: Code(s): N17.9 - Acute kidney failure, unspecified Status: Acute (5) Hyperglycemia: Code(s): R73.9 - Hyperglycemia, unspecified Status: Acute (6) Diabetic foot ulcer: Code(s): E11.621 - Type 2 diabetes mellitus with foot ulcer; L97.509 - Non-pressure chronic ulcer of other part of unspecified foot with unspecified severity Status: Acute (7) HTN (hypertension): Code(s): I10 - Essential (primary) hypertension Status: Acute (8) Insomnia: Code(s): G47.00 - Insomnia, unspecified Status: Acute DS: Summary Hospital Course Hospital Course: Patient is 53-year-old with history of diabetes mellitus presented to the [facility] with weakness in the left upper limb pain he also history of osteomyelitis the left foot and diabetic polyneuropathy. He is working with home health nurse and wound clinic at [facility] for his lt foot- it is improving. He had weakness in the left side of the body particular in the left upper limb. The MRI of the brain shows acute infarct in the right cerebral hemisphere. He is alert and oriented to self time place and person. No aphasia or dysarthria. Mild flattening of the left nasolabial fold. No tongue deviation. Other cranial nerves within normal limits. Motor system significant weakness of the left upper limb and partial weakness the left lower limb. Normal strength in right upper and lower limb. Sensory action unremarkable. No involuntary movements are seen. ECHO was done: uboptimal image quality, echo contrast was used. Normal LV size, moderate LVH, normal LV systolic and diastolic function. No significant MR. Aortic valve not well visualized, no hemodynamically significant stenosis by Doppler. Neurology saw him and following recommendations were made: he was started on aspirin 81 mg a day and Plavix 75 mg a day and Lipitor 80 mg a day. Life style changes: he was urged to stop smoking and try to control the risk factors such as diabetes mellitus and hypertension. He needs to follow up with pulm. for obstructive sleep apnea syndrome and address weight loss as well. Start with adding more fruit/veggies to diet, prioritizing lean protein. Diabetes: was on lantus 25 units and SS. 11/20 hgA1C 10.4. Time spent discussing smoking cessation with patient: more than 10 minutes Status at Discharge Functional status at discharge: uses cane/walker Overall status at discharge: patient is progressing back to baseline Time Spent with Patient Time attestation: Total time spent providing and/or coordinating discharge services: Time spent: Greater than 30 minutes Exam Narrative: General: no acute distress, calm, pleasant HEENT: Atraumatic, PERRL, EOM, anicteric, moist mucosa. Neck: Supple. Lungs: Clear bilaterally. Heart: RRR, no murmurs. Abdomen: Soft, non-tender, obese, +ve bowel sounds X4 quadrants. Musculoskeletal: Left arm with mild-mod weakness, left leg mild weakness. Extremities: Acyanotic, no edema, +2 pedal and radial pulses. Skin: Warm and dry. Left lateral distal foot with diabetic ulcer, pink and moist with some slough and slight yellowish drainage. Neuro: Well oriented, slight left-arm weakness, left arm drift on arm raise test, good cristofer. 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 no other focal neuro deficits noted. Psych: Calm and co-operative. Const: General: comfortable DS: Data Data Completed and Pending Completed studies during hospitalization: head/neck CT, Brain MRI Labs on day of discharge: Labs from last 24 hours 06/22/24 06/21/24 06/21/24 07:56 20:52 16:35 POC Capillary Glucose 115 H 206 H 300 H 06/21/24 11:29 POC Capillary Glucose 224 H Discharge Plan Discharge Attending physician on discharge: Kendall Mckeon Consulting providers: Braxton Thapa Discharging Clinician: Kalyani Gupta Patient Disposition: Inpatient Rehab Facility Activity: november shower Diet: diabetic Patient Instructions: Foot Care for People with Diabetes (GEN), Basic Carbohydrate Counting (GEN), Meal Planning with the Plate Method (GEN), Meal Planning with Diabetes Exchanges (GEN), Managing Diabetes During Sick Days (GEN), Ischemic Stroke (DC), Foot Ulcers in a Person with Diabetes (GEN), Diabetic Hyperglycemia (GEN), Hemoglobin A1c (GEN), Type 2 Diabetes in the Older Adult (GEN), Diabetes and Nutrition (GEN), Diabetes and Exercise (GEN), Right Hemispheric Stroke (DC), Type 2 Diabetes Management for Adults (GEN) Stand Alone Forms: General Discharge Information Discharge Medications: New atorvastatin 40 mg Tablet 80 mg PO DAILY Qty: 90 0RF clopidogrel 75 mg Tablet 75 mg PO QAM Qty: 90 0RF aspirin 81 mg Tablet,Delayed Release (Dr/Ec) 81 mg PO QAM Qty: 90 0RF No Action Unable to Obtain Home Medications Date of admission: 06/16/24 04:18 Primary Care Provider: [facility] Admitting Provider: Niranjan Ken V. Attending physician on admission: Niranjan Ken V. Condition: Stable Quality VTE Prophylaxis VTE prophylaxis: mechanical ordered Hospitalist MIPS Heart Failure (Exclusion) Patient has history of Heart Transplant or Left Ventricular Assistive Device?: No IF YES, STOP HERE Heart Failure (Qualifier) Patient has current or prior documentation of LVEF less than or equal to 40%, or mod/servere depressed LVSF?: No IF NO, STOP HERE
[2024-06-22] MEDS: ATORVASTATIN 40 MG TABLET PO (09:16)
[2024-06-22] MEDS: ASPIRIN 81 MG ENTERIC TABLET PO (09:16)
[2024-06-22] MEDS: CLOPIDOGREL BISULFATE 75 MG TABLET PO (09:16)
[2024-06-22] MEDS: FLUTICASONE PROPIONATE 0.05% NA SPR 16 GM BTL (*BKC) 1 SPRAY NASAL ×2 (09:17→20:08)
[2024-06-22 09:51] LABS: Hemoglobin 10.4 g/dL (14.0-18.0); Mean Corpuscular HGB Conc 32.5 g/dl (32-36); Mean Corpuscular Hemoglobin 26.1 pg (26-34); Mean Corpuscular Volume 80.2 fl (80-100); Platelet Count Result 319 k/mm3 (150-375); Red Blood Count 3.99 M/mm3 (4.6-6.20); Red Cell Distribution Width 14.3 % (11.5-14.5); White Blood Count 8.8 K/mm3 (4.5-10.0)
[2024-06-22 10:15] LABS: Anion Gap 4 mmol/L (4-12); Blood Urea Nitrogen 38 mg/dL (9-20); Calcium 8.9 mg/dL (8.4-10.2); Carbon Dioxide 32 mmol/L (22-30); Chloride 99 mmol/L (98-107); Estimated CRCL calculation 55 ml/min; Estimated Glomerular Filt Rate 45; Glucose 216 mg/dL (65-110); Potassium 4.8 mmol/L (3.4-5.0); Sodium 135 mmol/L (137-145)
[2024-06-22 11:46] LABS: Glucose Point of Care 224 mg/dl (65-105)
[2024-06-22] MEDS: INSULIN ASPART (*BKC) 100 UNITS/ML SUB-Q ×2 (11:58→20:12)
[2024-06-22 16:44] LABS: Glucose Point of Care 200 mg/dl (65-105)
[2024-06-22] MEDS: traZODone HCL 50 MG TABLET 100 MG PO (20:08)
[2024-06-22] MEDS: INSULIN GLARGINE (*BKC) 100 UNITS/ML 25 UNITS SUB-Q (20:11)
[2024-06-22 20:43] LABS: Glucose Point of Care 306 mg/dl (65-105)
[2024-06-23 06:36] VITALS: BP 118/61; PULSE 76; RESP 14; TEMP 36.6; O2SAT 98
[2024-06-23 07:57] LABS: Glucose Point of Care 111 mg/dl (65-105)
[2024-06-23 08:00] VITALS: O2SAT 98
[2024-06-23] MEDS: ATORVASTATIN 40 MG TABLET PO (08:04)
[2024-06-23] MEDS: CLOPIDOGREL BISULFATE 75 MG TABLET PO (08:04)
[2024-06-23] MEDS: FLUTICASONE PROPIONATE 0.05% NA SPR 16 GM BTL (*BKC) 1 SPRAY NASAL (08:04)
[2024-06-23] MEDS: ASPIRIN 81 MG ENTERIC TABLET PO (08:04)
--- NOTE | 2024-06-23 11:25 | P.DS_ITS ---
DS: Admitting Diagnosis Discharge Date 06/23/24 Admitting Diagnosis Left Upper Arm Weakness DS: Discharge Diagnosis Discharge Diagnosis (1) Acute CVA (cerebrovascular accident): Code(s): I63.9 - Cerebral infarction, unspecified Status: Acute Assessment and Plan: - Brain MRI 06/16/24 14:17 IMPRESSION: 1. Acute infarct involving the right posterior frontal, parietal, superior temporal and insular areas. 2. No abnormal enhancement. - Seen by Neurologist. - Aspirin 81 mg QD, Plavix 75 mg QD, Lipitor 80 mg bedtime recommended per neurologist. - Outside window for IV thrombolysis on his presentation and treatment not administered. - Patient treated on acute CVA protocol. - ST/PT/OT eval and treatment. - TTE showing LVEF 65-70 %. No intracardiac embolus noted. - A1C, Lipid panel ordered. - Maintains SR on telemetry. - education provided to stop smoking and try to control the risk factors such as diabetes mellitus and hypertension. -continue working with pt/ot- awaiting DOMONIQUE/placement. - Accepted at [facility] and is being transferred for therapy today. (2) Left arm weakness: Code(s): R29.898 - Other symptoms and signs involving the musculoskeletal system Status: Acute Assessment and Plan: - Likely related to above vs less likely musculoskeletal, compressive neuropathy versus brachial plexopathy due to positional compression. - MRI +ve for acute infarct as noted above. - Labs fairly unremarkable. - CXR negative. - UA negative. - CTA head/Neck negative for acute. - SR on EKG. - Neurologist following. - Continue to implement acute CVA protocol. - TTE, A1C, pending. - Lipid Panel reviewed and LDL noted, 46. - PT/OT treatment done inpatient and inpatient rehab recommended. - Fall precautions. (3) Recurrent falls: Code(s): R29.6 - Repeated falls Status: Acute Assessment and Plan: - Unclear etiology. - Possibly related to patient's acute CVA vs musculoskeletal vs other. - CTA head/neck negative. - UA negative. - CXR negative. - MRI brain showing acute CVA. - Neurologist following. - Continue PT/OT eval and treatment. - Fall precautions. - Other mgt per # 1. (4) Acute kidney injury: Code(s): N17.9 - Acute kidney failure, unspecified Status: Acute Assessment and Plan: - Unclear etiology and unsure pt's baseline kidney function with no previous labs. - Possibly dehydration vs/+ diabetic + hypertensive nephropathy. - Given fluid bolus in ER on admission. - Possibly at baseline prior to discharge. - Continue to avoid nephrotoxins. - Meds dosing per renal function. (5) Hyperglycemia: Code(s): R73.9 - Hyperglycemia, unspecified Status: Acute Assessment and Plan: - Hx of DM 2. - Blood glucose monitored AC & HS. - Started on Lantus and SSI. - A1C 10.4. - Diabetic diet inpatient. - Continue to adjust insulin as needed. - Hypoglycemic protocol with insulin use. Continue Lantus bedtime. (6) Diabetic foot ulcer: Code(s): E11.621 - Type 2 diabetes mellitus with foot ulcer; L97.509 - Non-pressure chronic ulcer of other part of unspecified foot with unspecified severity Status: Acute Assessment and Plan: - Chronic. - Appears clean and non-infected. - Wound nurse consult. - Wound mgt per nursing staff. (7) HTN (hypertension): Code(s): I10 - Essential (primary) hypertension Status: Acute Assessment and Plan: - Fairly well controlled. - Lisinopril held with BECCA and permissive hypertension post acute CVA. - Adjust meds as needed when stable. (8) Insomnia: Code(s): G47.00 - Insomnia, unspecified Status: Acute Assessment and Plan: trazodone- 100 mg hs prn Plan Discharge to [facility] DS: Summary Hospital Course Reason for hospitalization: Left Upper Arm Weakness. Hospital Course: Patient presented to the hospital with Left Upper Arm Weakness. MRI Brain confirmed; Brain MRI 06/16/24 14:17 IMPRESSION: 1. Acute infarct involving the right posterior frontal, parietal, superior temporal and insular areas. 2. No abnormal enhancement. Symptoms likely related to Acute CVA. - Seen by Neurologist. - Aspirin 81 mg QD, Plavix 75 mg QD, Lipitor 80 mg bedtime recommended per neurologist. - Outside window for IV thrombolysis on his presentation and treatment not administered. - Patient admitted on acute CVA protocol. - ST/PT/OT eval and treatment done inpatient. - TTE showing LVEF 65-70 %. No intracardiac embolus noted. - A1C 10.4. - LDL 66. - Maintained SR on telemetry inpatient. - education provided to stop smoking and try to control the risk factors such as diabetes mellitus and hypertension. -continue working with pt/ot- awaiting DOMONIQUE/placement. - Accepted at [facility] and is being transferred for therapy today. Status at Discharge Functional status at discharge: uses cane/walker Overall status at discharge: patient is progressing back to baseline Time Spent with Patient Time attestation: Total time spent providing and/or coordinating discharge services: Time spent: Greater than 30 minutes Exam Narrative: General: no acute distress, calm, pleasant HEENT: Atraumatic, PERRL, EOM, anicteric, moist mucosa. Neck: Supple. Lungs: Clear bilaterally. Heart: RRR, no murmurs. Abdomen: Soft, non-tender, obese, +ve bowel sounds X4 quadrants. Musculoskeletal: Left arm with mild-mod weakness, left leg mild weakness. Extremities: Acyanotic, no edema, +2 pedal and radial pulses. Skin: Warm and dry. Left lateral distal foot with diabetic ulcer, pink and moist with some slough and slight yellowish drainage. Neuro: Well oriented, slight left-arm weakness, left arm drift on arm raise test, good cristofer. 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 no other focal neuro deficits noted. Psych: Calm and co-operative. Const: General: comfortable DS: Data Data Completed and Pending Labs on day of discharge: Labs from last 24 hours 06/23/24 06/22/24 06/22/24 07:38 20:10 16:37 POC Capillary Glucose 111 H 306 H 200 H 06/22/24 11:37 POC Capillary Glucose 224 H Discharge Plan Discharge Attending physician on discharge: Manuel Gamboa Consulting providers: Braxton Thapa Discharging Clinician: Schuyler Gomez Patient Disposition: Inpatient Rehab Facility Activity: november shower Diet: diabetic, low cholesterol and low fat Wound Care Instructions: change dressing daily Patient Instructions: Foot Care for People with Diabetes (GEN), Basic Carbohydrate Counting (GEN), Meal Planning with the Plate Method (GEN), Meal Planning with Diabetes Exchanges (GEN), Managing Diabetes During Sick Days (GEN), Ischemic Stroke (DC), Foot Ulcers in a Person with Diabetes (GEN), Diabetic Hyperglycemia (GEN), Hemoglobin A1c (GEN), Type 2 Diabetes in the Older Adult (GEN), Diabetes and Nutrition (GEN), Diabetes and Exercise (GEN), Right Hemispheric Stroke (DC), Type 2 Diabetes Management for Adults (GEN) Stand Alone Forms: General Discharge Information Discharge Medications: New atorvastatin 40 mg Tablet 80 mg PO DAILY Qty: 90 0RF clopidogrel 75 mg Tablet 75 mg PO QAM Qty: 90 0RF aspirin 81 mg Tablet,Delayed Release (Dr/Ec) 81 mg PO QAM Qty: 90 0RF Continued Amlodipine-Enalapril 5 - 10 mg PO DAILY ferrous sulfate 325 mg (65 mg iron) Tablet 325 mg PO DAILY rosuvastatin [Crestor] 40 mg Tablet 40 mg PO DAILY pregabalin [Lyrica] 75 mg Capsule 75 mg PO DAILY insulin glargine [Lantus Solostar U-100 Insulin] 100 unit/mL (3 mL) Insulin Pen 24 unit SUBCUT HS Jardiance 25 mg Tablet 12.5 mg PO DAILY sertraline 200 mg Capsule 200 mg PO DAILY Novolog FlexPen U-100 Insulin 12 units subcut TIDWMEAL Date of admission: 06/16/24 04:18 Primary Care Provider: [facility] Admitting Provider: Niranjan Ken V. Attending physician on admission: Niranjan Ken V. Condition: Stable Quality VTE Prophylaxis VTE prophylaxis: mechanical ordered Hospitalist MIPS Heart Failure (Exclusion) Patient has history of Heart Transplant or Left Ventricular Assistive Device?: No IF YES, STOP HERE Heart Failure (Qualifier) Patient has current or prior documentation of LVEF less than or equal to 40%, or mod/servere depressed LVSF?: No IF NO, STOP HERE
== END 2024-06-23 09:40 | DRG 45 ==
LOC: ANHED 02:25 → ANH2MED 04:39
PROVIDERS: Nurse Practitioner; Nurse Practitioner Adult Health; Psychiatry & Neurology Neurology; Admitting Provider Internal Medicine; Emergency Provider Emergency Medicine; Visit Provider Internal Medicine
DX: I63.9 Cerebral infarction, unspecified (principal); G81.94 Hemiplegia, unspecified affecting left nondominant side; L97.529 Non-pressure chronic ulcer of other part of left foot with unspecified severity; E11.42 Type 2 diabetes mellitus with diabetic polyneuropathy; E11.65 Type 2 diabetes mellitus with hyperglycemia; E11.621 Type 2 diabetes mellitus with foot ulcer; F17.210 Nicotine dependence, cigarettes, uncomplicated; G47.00 Insomnia, unspecified; I10 Essential (primary) hypertension; N17.9 Acute kidney failure, unspecified; R29.6 Repeated falls; Z89.422 Acquired absence of other left toe(s); Z89.421 Acquired absence of other right toe(s); Z79.84 Long term (current) use of oral hypoglycemic drugs; Z79.4 Long term (current) use of insulin
CPT/HCPCS: 36415; 70496; 70498; 70553; 71045; 80048; 80053; 80061; 80307; 81001; 82077; 82948; 83036; 83735; 85025; 85027; 85610; 85730; 92610; 93005; 97110; 97116; 97162; 97166; 97530; 97535; 99285; A9270; A9577; C8929; J1815; J7030; Q9957; Q9967